=== PATIENT | female | born 1960 | race Caucasian/White ===

== ENCOUNTER 2018-10-07 13:42 | Inpatient (IN) | payer OTHER ==
[~2018-10-07] VITALS: Ht 167.6 cm; Wt 70.8 kg
[2018-10-07 13:45] VITALS: BP 97/67
[2018-10-07] MEDS ORDERED: NOHOMEMEDICATIONS (14:07)
[2018-10-07 14:18] LABS: ABSOLUTE NEUTROPHILS 7.9 thou/uL (1.4-8.2); BASOPHILS 0.1 % (0.0-2.0); EOSINOPHILS 0.1 % (0.0-3.0); HEMATOCRIT 46.1 % (37.0-47.0); HEMOGLOBIN 15.9 gm/dL (12.0-15.0); LYMPHOCYTES 5.8 % (24.0-44.0); MCH 30.3 pg (26.0-34.0); MCHC 34.5 g/dL (28.0-37.0); MCV 87.8 fL (80.0-100.0); MONOCYTES 7.3 % (1.0-8.0); PLATELET COUNT 276 thou/uL (150-400); POLYS 86.7 % (36.0-66.0); RBC 5.25 mil/uL (4.20-5.00); RDW 13.2 % (10.5-14.5); WBC 9.1 thou/uL (4.0-11.0)
[2018-10-07 14:25] LABS: CALCIUM 8.9 mg/dL (8.5-10.1); CREATININE 0.9 mg/dL (0.6-1.0); POTASSIUM 3.8 mmol/L (3.5-5.1)
[2018-10-07 14:31] LABS: ALBUMIN 3.5 g/dL (3.4-5.0); TOTAL BILIRUBIN 0.5 mg/dL (<0.1-1.0); TOTAL PROTEIN 7.5 g/dL (6.4-8.2)
[2018-10-07 16:10] VITALS: BP 106/54
[2018-10-07 16:49] VITALS: BP 106/54
[2018-10-07 17:55] VITALS: BP 107/62
[2018-10-07 19:25] VITALS: BP 113/60
--- NOTE | 2018-10-07 19:36 | NUR ---
adm PT CAME IN FROM ER. ADM ORDERS CARRIED OUT. PT ORIENTED TO ROOM, PRN PAIN AND NAUSEA MEDS GIVEN.
[2018-10-08 03:32] VITALS: BP 87/46
[2018-10-08 05:56] LABS: HEMATOCRIT 38.1 % (37.0-47.0); MCH 30.1 pg (26.0-34.0); MCHC 34.3 g/dL (28.0-37.0); MCV 87.9 fL (80.0-100.0); RBC 4.33 mil/uL (4.20-5.00); RDW 13.2 % (10.5-14.5); WBC 5.2 thou/uL (4.0-11.0)
[2018-10-08 05:59] LABS: CALCIUM 8.3 mg/dL (8.5-10.1); CREATININE 0.8 mg/dL (0.6-1.0); POTASSIUM 3.5 mmol/L (3.5-5.1)
[2018-10-08 06:06] LABS: HEMOGLOBIN 13.1 gm/dL (12.0-15.0)
[2018-10-08 07:25] VITALS: BP 110/59
--- NOTE | 2018-10-08 09:57 | NUR ---
PROGRESS PT ADMITTED WITH SBO, BS ABSENT, ABDOMEN DISTENDED PAINFUL AND SLIGHTLY FIRM GUARDING NOTED WITH ASSESSMENT. NG ATTEMPTED TO RIGHT NARE UNABLE TO INSERT PT PANICKED AND HAD TO BE GIVEN A BREAK, INSERTED INTO LEFT NARE WITH NO DIFFICULTY IMMEDIATE RETURN OF 300 CC'S OF DARK GREEN/BLACK DRAINAGE PT ALSO VOMITED A LARGE AMOUNT DURING INSERTION, DRAINAGE NOW HAS SOME ALICE BLOOD IN IT LEFT NARE WAS BLEEDING FROM NG ATTEMPT BUT NOT NOTED AT THIS TIME. APPROX. 0030 IMMEDIATELY AFTER NG INSERTION COMPLETED PT FAINTED AND BECAME UNRESPONSIVE HAD A PULSE BUT DID NOT APPEAR TO BE BREATHING CODE CALL PT WOKE WITHIN A MINUTE RAT TEAM MANAGING BROKER IN, PHYSICIAN NOTIFIED PT PLACED ON TELEMETRY. VSS RESTING AT THIS TIME.
--- NOTE | 2018-10-08 10:33 | NUR ---
PT ADMITTED RELATED TO SBO, UPPER GI BLEED. CM REVIEWED CHART AND SPOKE WITH CARE TEAM. CM MET WITH PT AND MELISSA AT BEDSIDE THIS DAY. PT IS A&O X4. CM ROLE INTRODUCED. PT INDICATED SHE AND SO LIVE IN A MOBILE HOME WITH 4 STEPS TO ENTER AND NO STEPS INSIDE. 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 PT INDICATED NO DME OR HH HX. PT INDICATED SHE PLANS TO RETURN HOME ONCE MEDICALLY STABLE. CM TO FOLLOW INDICATED WITH DC PLANNING.
[2018-10-08 11:40] VITALS: BP 103/54
[2018-10-08 19:34] VITALS: BP 112/69
[2018-10-09 03:21] VITALS: BP 104/57
[2018-10-09 17:23] VITALS: BP 104/58
--- NOTE | 2018-10-09 17:29 | NUR ---
TOWARDS POC PT A/O X4, VSS, AFEBRILE. PAIN MANAGED BY MEDS. PT HAD NG TUBE AND ACCIDENTALLY PULLED OUT. NURSE PUT ANOTHER NG TUBE AT LEFT NARE PER SURGEON. ONETIME ATIVAN GIVEN PRIOR INSERTION. PT NG TUBE WITH WHITISH MINIMAL OUTPUT ON LOW INT. SUCTIONING. HOSPITALIST IS OK TO LEAVE THE NG TUBE OUT IF ITS ACCIDENTALLY COMES OUT AGAIN. WILL CONTINUE TO MONITOR.
[2018-10-09 19:23] VITALS: BP 102/57
[2018-10-10 04:41] VITALS: BP 105/57
--- NOTE | 2018-10-10 05:32 | NUR ---
PT SLEPT WELL FOR MOST OF THE NIGHT. READJUSTED NG TUBE TO REDUCE PULLING. REMAINED AT 35CM. 100ML OUT OF NG OVER NIGHT. ADMINISTERED 3 DOSES OF PAIN MEDICATION OVERNIGHT. NO NAUSEA.
--- NOTE | 2018-10-10 11:14 | NUR ---
LOURDES MALONE REVEIEWED BY . FLEET ENEMAX1. TOLERATED VERY POORLY. PT STARTED SCREAMING AND PAIN AND REQUESTED THE ENEMA TO BE STOPPED. 3/4 BOTTLE COMPLETED. MADE SMALL BOWEL MOVEMENT. REPORTS PRESSURE. NGT STILL SUCTIONING TO INTERMITTENT SUCTION. CALLED AND OBTAINED AN ORDER FOR ONE TIME FENTANYL. PT NOW RESTING IN BED. BEDSIDE COMMODE NEXT TO PT'S BED AND AT BEDSIDE. WILL CONT TO MONITOR FOR ANY CHANGES.
[2018-10-10 14:02] VITALS: BP 101/65
--- NOTE | 2018-10-10 14:35 | NUR ---
Care team indicated that they are currently treating with conservative management but may necessitate operative intervention if no better in a few days. It isn't antipated that pt will discharge over the weekend. Cm to follow as indicated with dc planning.
--- NOTE | 2018-10-10 18:41 | NUR ---
ASSUMED CARE AT 0700. AXOX4. SBO. NPO, NGT INTERM SUCTION. ENEMA X 1 PER ATTENDING, TOLERATED POORLY. LATER EVALUATED BY AT BEDSIDE. PAIN MED CHANED TO DILUADID FROM FENTANYL. PERSISTENT NAUSEA CONTOLLED WITH ZOFRAN. NO S/S ACUTE DISTRESS NOTED OR REPORTED AT THIS TIME
[2018-10-10 19:07] VITALS: BP 86/46
[2018-10-10 21:26] VITALS: BP 111/61
[2018-10-11] VITALS (7 sets, daily range): BP systolic 84–144; BP diastolic 47–74
--- NOTE | 2018-10-11 04:00 | NUR ---
PT C/O EPIGASTRIC CHEST PAIN RADIATING TO LEFT SHOULDER. CORPORATE WELLNESS COORDINATOR CALLED. SEE CORPORATE WELLNESS COORDINATOR FLOWSHEET.
[2018-10-11 04:05] LABS: CALCIUM 8.1 mg/dL (8.5-10.1); CREATININE 0.7 mg/dL (0.6-1.0)
[2018-10-11 06:09] LABS: CHOLESTEROL 180 mg/dL (<200); HDL CHOLESTEROL 33 mg/dL (>40); LDL CHOLESTEROL 123 mg/dL (<100); TC:HDL 5.5 Ratio (Not establshd); TRIGLYCERIDE 122 mg/dL (<150); VLDL 24 mg/dL (<40)
--- NOTE | 2018-10-11 06:10 | NUR ---
ASSUMED PT CARE 1900. PT ALERT AND ORIENTED X4. VSS, LOW BLOOD PRESSURE 86/46 PT IS NONSYMPTOMATIC, HOSPITALITY AMBASSADOR NOTFIED, CONTINUING TO MONITOR. NG TUBE IN PLACE AND FLUSHED, SUCTIONING WELL. PT REPORTS NAUSEA, TREATED WITH MEDICATION, SEE EMAR. PT REPORTS SEVERE PAIN, PARTIALLY RELEIVED BY MEDICATION, SEE EMAR. PT REPORTED CHEST PAIN, NUMBNESS AND TINGLING DOWN LEFT ARM INTO FINGERS. RAT TEAM CALLED, STAT EKG AND LABS OBTAINED. PROTONIX GIVEN EARLY. SUBLINGUAL NITRO GIVEN X1, PT REPORTED ALMOST IMMEDIATE RELEIF. HOSPITALITY AMBASSADOR NOTIFIED, ORDERS GIVEN FOR LIPID PROFILE AND CARDIO CONDULT. VS IMMEDIATELY FOLLOWING REPORTED CHEST PAIN STABLE. NO VARIATION IN TELE. PT REMAINES ON RA. NO COMPLAINTS OF SHORTNESS OF BREATH, O2 SATS 99%. SUCTION TUBING ON NG TUBE REPLACED, TUBING FLUSHED AGAIN. PT TRANSFERED TO , REPORT CALLED AND GIVEN TO NURSE.
[2018-10-11 06:12] LABS: SERUM ASSESSMENT Clear
--- NOTE | 2018-10-11 06:34 | NUR ---
PATIENT CAME TO FLOOR PATIENT ON TELE. PAIN TREATED K(+) INFUSING. PATIENT IS RESTING COMFORTABELY IN BED. BED ALARM ON. WCM. PATIENT IS PROGRESSING TO GOALS.
--- NOTE | 2018-10-11 10:53 | EKG ---
[address] [place] [employer] [place] [address] ELECTROCARDIOGRAM REPORT Name: CASSANDRA CALERO Room #: 359-P ADM IN M.R.#: [id number] Admission: 10/07/18 Attend Phys: Madi Santiago Discharge: Date of : 56 Report #: [id number] THIS REPORT FOR: //name// [facility] Test Date: 2018-10-11 Test Time: 08:39:41 Pat Name: CASSANDRA CALERO Department: Room: 359 Gender: F Inspector Repairer [place]: blake : 1960 Requested By: Sandra Echavarria Order Number: [id number] MD: Regis Gabriel Measurements Intervals [place] Rate: 63 P: 39 NC: 165 QRS: 59 QRSD: 92 T: 25 QT: 418 QTc: 428 Interpretive Statements Sinus rhythm Abnormal R-wave progression, early transition No previous ECG available for comparison Electronically Signed On 10-11-2018 10:53:32 HAND CUTTER by Regis Gabriel [email or web address] <ELECTRONICALLY SIGNED> By: Regis Gabriel MD, [facility] 10/11/18 1053 [id number] Regis Gabriel MD, FACC /EPI
--- NOTE | 2018-10-11 13:55 | 2DMMODE ---
[facility] [address] [place] [address] 2 D/M-MODE ECHOCARDIOGRAM Name: GALILEACASSANDRA Room #: 359-P ADM IN M.R.#: [id number] Admission: 10/07/18 Attend Phys: Madi Glynn Discharge: Date of : 56 Date of Service: 10/11/18 1355 Report #: [id number] THIS REPORT FOR: //name// APPROVED REPORT Study performed: 10/11/2018 12:00:46 EXAM: Comprehensive 2D, Doppler, and color-flow Echocardiogram Patient Location: Bedside Room #: 359 Status: on-call BSA: 1.80 HR: 66 bpm BP: 87/47 mmHg Rhythm: NSR Other Information Study Quality: Adequate Risk Factors: Cardiac Risk Factors: Hyperlipidemia Indications Chest Pain 2D Dimensions IVSd: 10.63 (7-11mm) LVOT Diam: 20.00 (18-24mm) LVDd: 35.30 mm PWd: 10.86 (7-11mm) Ascending Ao: 29.12 (22-36mm) LVDs: 26.30 (25-40mm) Aortic Root: 28.40 mm LV Single Plane 4CH: 73.49 % LV Single Plane 2CH: 67.38 % Biplane EF: 70.2 % Volumes Left Atrial Volume (Systole) Single Plane 4CH: 21.05 mL Single Plane 2CH: 38.99 mL LA ESV Index: 17.00 mL/m2 Aortic Valve AoV Peak Thiago.: 1.59 m/s AO Peak Gr.: 10.14 mmHg Mitral Valve [facility] [address] [place] [address] 2 D/M-MODE ECHOCARDIOGRAM Name: CASSANDRA CALERO Room #: 359-P [facility] IN .R.#: [id number] Admission: 10/07/18 Attend Phys: Madi Glynn Discharge: Date of : 56 Date of Service: 10/11/18 1355 Report #: [id number] E/A Ratio: 1.2 MV Decel. Time: 265.29 ms MV E Max Thiago.: 0.73 m/s MV A Thiago.: 0.62 m/s MV PHT: 76.93 ms IVRT: 64.59 ms TDI E/Lateral E': 6.08 E/Medial E': 7.30 Medial E' Thiago.: 0.10 m/s Lateral E' Thiago.: 0.12 m/s Pulmonary Valve PV Peak Thiago.: 1.00 m/s PV Peak Gr.: 4.03 mmHg Pulmonary Vein P Vein S: 0.65 m/s P Vein A: 0.34 m/s P Vein D: 0.51 m/s P Vein A Dur.: 114.2 msec P Vein S/D Ratio: 1.27 Tricuspid Valve TR Peak Thiago.: 2.34 m/s RAP Estimate: 7.00 mmHg TR Peak Gr.: 21.93 mmHg PA Pressure: 29.00 mmHg Left Ventricle The left ventricle is normal size. There is normal LV segmental wall motion. There is normal left ventricular wall thickness. Left ventricular systolic function is normal. The left ventricular ejection fraction is within the normal range. LVEF is 65-70%. The left ventricular diastolic function is normal. Right Ventricle The right ventricle is normal size. The right ventricular systolic function is normal. Atria The left atrium size is normal. The right atrium size is normal. Aortic Valve The aortic valve is normal in structure. No aortic regurgitation is present. There is no aortic valvular stenosis. Mitral Valve The mitral valve is normal in structure. There is no mitral valve [place] [id number] 2 D/M-MODE ECHOCARDIOGRAM Name: CASSANDRA CALERO Room #: 359-P ADM IN M.R.#: [id number] Admission: 10/07/18 Attend Phys: Madi Glynn Discharge: Date of : 56 Date of Service: 10/11/18 1355 Report #: [id number] regurgitation noted. No evidence of mitral valve stenosis. Tricuspid Valve The tricuspid valve is normal in structure. Trace tricuspid regurgitation. Pulmonary artery pressure is 25 mmHg. Pulmonic Valve The pulmonary valve is normal in structure. There is no pulmonic valvular regurgitation. Great Vessels The aortic root is normal in size. IVC is normal in size and collapses >50% with inspiration. Pericardium There is no pericardial effusion. <Conclusion> Left ventricular systolic function is normal. There is normal LV segmental wall motion. LVEF is 65-70%. The left ventricular diastolic function is normal. The aortic valve is normal in structure. No aortic regurgitation or stenosis. The mitral valve is normal in structure. No mitral valve regurgitation. Trace tricuspid regurgitation. Pulmonary artery pressure is 25 mmHg. There is no pericardial effusion. <ELECTRONICALLY SIGNED> By: Regis Gabriel MD, FACC 10/11/18 1355 1355 1355 Regis Gabriel MD, FACC /INF
--- NOTE | 2018-10-11 18:44 | NUR ---
CONSULTED TO PLACE A MIDLINE FOR A PATIENT NEEDING IV ACCESS. DISCUSSED MIDLINE PLACEMENT WITH THE PATIENT INCLUDING BENIFITS AND RISK FOR DVT AND INFECTION. SHE VERBALIZED UNDERSTANDING. A VERBAL CONSENT OBTAINED. THE PATIENTS LUE BASILIC WAS WIDLEY PATENT. A #4F POWER MIDLINE WAS PLACED PER HOSPITAL POLICY. LINE WAS TRIMMED TO 15CM AND ADVANCED WITHOUT DIFFICULTY. LINE SECURED AND RELEASED FOR USE
--- NOTE | 2018-10-11 20:23 | NUR ---
ASSUMED CARE THIS AM, SHIFT ASSESSMENT DONE. BP LOW THIS AM, PROVIDER AWARE. REPORTED PAIN, PRN PAIN MEDS GIVEN. REMAINS ON LOW INTERMITTENT MOBIVAC SUCTION. PATIENT AND FAMILY WAS URGING TO SEE THE SURGEON AND HOSPITALIST THEY WERE INSISTING ON SURGERY. DR MENDOZA WAS CONTACTED AND ORDERS RECEIVED FOR Q6H TORADOL PRN. 1ST DOSE WAS GIVEN AT 1500 AND 3 MINUTES AFTER THE FIRST DOSE, PATIENT STARTED REPORTING SEVERE DIFFICULTY BREATHING. SATURATION WAS DOWN TO 74%. PATIENT WAS STARTED ON A NON-REBREATHER MASK, PRN BREATHING TREATMENT WITH DUONEB WAS GIVEN. IN THE PROCESS PATIENT PULLED THE NG TUBE OUT AT 1530 PATIENT STARTED BREATHING BETTER. DR CHIANG WAS AWARE. ORDER RECEIVED FOR CHEST XRAY, WHICH SHOWED ASPIRATON. WAS STARTED ON IV ZOSYN, BUT PATIENT WAS ALLERGIC TO IT, SWITCHED TO LEVAQUIN. PATIENT HOWEVER REFUSED TO PUT THE NG TUBE BACK IN. DR MENDOZA AWARE, ORDERS RECEIVED FOR 1 MG ATIVAN PRN ONE TIME DOSE IF PATIENT WANTS TO PUT THE NG TUBE BACK. NIGHT NURSE AWARE. POTTASIUM WAS CRTICALLY LOW WELL. ON ELECTROLYTE PROTOCOL, REPLACEMENT IN PLACE. ORDERS RECEIVED FOR MIDLINE, IV NURSE INFORMED AND HAS A RIGHT UPPER ARM MIDLINE NOW. PAIN CONTROLLED BY IV DILAUDID AND NAUSEA MANAGED BY ZOFRAN. WILL CONTINUE TO ASSESS AND ASSIST WITH ADLs NEEDED.
[2018-10-12 04:16] VITALS: BP 122/73
--- NOTE | 2018-10-12 06:39 | NUR ---
Pt. very anxious at beginning of shift. Medicated for pain with some relief. Agreed to have NG placed. Lorazepam given prior. Tolerated procedure well and stated it didnt hurt at all. Zofran given for nausea with good relief. Encouraged to ambulate and she did ambulate around hallway x2. She is less anxious and slept fair during the night with her friend at bedside. Hypoactive bowel sounds , reported passing gas yesterday , no bm this shift. NG had 50 ml brownish colored dge. Left NG to LIS. Kept NPO .SCD's in place. Will continue to monitor.
[2018-10-12 07:18] VITALS: BP 123/70
[2018-10-12 11:23] VITALS: BP 107/66
--- NOTE | 2018-10-12 11:57 | EKG ---
[address] [place] [address] ELECTROCARDIOGRAM REPORT Name: CASSANDRA CALERO Room #: 359- ADM IN M.R.#: [id number] Admission: 10/07/18 Attend Phys: Madi Santiago Discharge: Date of : 56 Report #: [id number] THIS REPORT FOR: //name// [facility] Test Date: 2018-10-11 Test Time: 03:37:36 Pat Name: CASSANDRA CALERO Department: Room: 359 Gender: F Ribbon Sweatband Operator: daniele : 1960 Requested By: Sandra Echavarria Order Number: [id number] MD: Regis Gabriel Measurements Intervals [place] Rate: 74 P: 52 MN: 168 QRS: 61 QRSD: 91 T: 29 QT: 402 QTc: 446 Interpretive Statements Sinus rhythm Nonspecific ST segment abnormality No previous ECG available for comparison Electronically Signed On 10-12-2018 11:57:29 LIBRARY PARAPROFESSIONAL by Regis Gabriel [email or web address] <ELECTRONICALLY SIGNED> By: Regis Gabriel MD, [facility] 10/12/18 1157 0337 0337 Regis Gabriel MD, FACC /EPI
[2018-10-12 15:09] VITALS: BP 112/55
--- NOTE | 2018-10-12 17:21 | NUR ---
ASSUMED PATIENT CARE AT 0700. A/O X4. ABD DISTENDED. PATIENT WALKED IN [address] THREE TIMES. PAIN MEDS GIVEN Q3H. NO N/V. NG TO LIS HAD 15OML OUT. WILL HAVE ABD SURGERY TOMORROW NOON TIME. WILL KEEP MONITOR.
[2018-10-12 19:30] VITALS: BP 108/49
[2018-10-13] VITALS (9 sets, daily range): BP systolic 96–119; BP diastolic 61–74
--- NOTE | 2018-10-13 04:09 | NUR ---
PT MAKING SLOW PROGRESS TOWARDS GOALS. X3 DOSES OF DILAUDID GIVEN OVERNIGHT. X1 DOSE OF ZOFRAN GIVEN. ZOFRAN DID RELIEVE THE NAUSEA. ABD PAIN GENERALLY RATED 8/10 WHICH SHE USUALLY DECREASES TO 5-6/10 AFTER DILAUDID DOSES.
[2018-10-13 05:38] LABS: HEMOGLOBIN 9.6 gm/dL (12.0-15.0); MCH 30.5 pg (26.0-34.0); MCHC 34.3 g/dL (28.0-37.0); MCV 88.8 fL (80.0-100.0); RBC 3.15 mil/uL (4.20-5.00); WBC 4.2 thou/uL (4.0-11.0)
[2018-10-13 05:51] LABS: CREATININE 0.7 mg/dL (0.6-1.0); POTASSIUM 3.1 mmol/L (3.5-5.1)
--- NOTE | 2018-10-13 15:08 | NUR ---
SW reviewed chart and spoke with nursing and attending physician. Pt was transferred to 3 from 4W. Pt to have exporatory lap today due to SBO. Plan is for pt to return home with her s/o when medically stable. MELISSA is following to assist as needed with discharge planning.
--- NOTE | 2018-10-13 18:18 | NUR ---
ASSUMED PATIENT CARE AT 0700. A/ O X4. PLEASANT. WENT TO OR HAD SMALL BOWEL RESECTION. ABD INCISION WITH PROVENA WOUND VAC. ABD DISTENDED. PAIN MEDS GIVEN Q3H. AFEBRLIE. VSS. BACK TO UNIT AT 1600. PATIENT DENIES N/V. WILL KEEP MONITOR.
[2018-10-14 03:55] VITALS: BP 106/61
[2018-10-14 05:25] LABS: ALBUMIN 2.2 g/dL (3.4-5.0); CALCIUM 8.4 mg/dL (8.5-10.1); CREATININE 0.7 mg/dL (0.6-1.0); PHOSPHORUS 3.6 mg/dL (2.5-4.9); POTASSIUM 3.8 mmol/L (3.5-5.1)
[2018-10-14 05:44] LABS: HEMATOCRIT 32.8 % (37.0-47.0); HEMOGLOBIN 11.3 gm/dL (12.0-15.0); MCH 30.3 pg (26.0-34.0); MCHC 34.4 g/dL (28.0-37.0); MCV 88.1 fL (80.0-100.0); RBC 3.72 mil/uL (4.20-5.00); RDW 12.9 % (10.5-14.5)
[2018-10-14 07:25] VITALS: BP 122/71
--- NOTE | 2018-10-14 07:42 | NUR ---
SLEPT PART OF SHIFT. ASSISTED TO REPOSITION NEEDED. COMPLAINTS OF POST OP PAIN AND NAUSEA. STATES IS BETTER THIS AM. SLEEPING PAST MEDICATIONS GIVEN. WORKING ON GOALS AND PLAN OF CARE FOR NOC. PROGRESSING SLOWLY TOWARDS DISCHARGE GOALS. ENCOURGE TO TAKE FLUIDS SLOWLY. BURPED X1 LAST NOC. BOWEL SOUNDS HYPOACTIVE. CONTINUE TO ASSES.
--- NOTE | 2018-10-14 13:42 | NUR ---
SW reviewed chart and spoke with nursing and attending physician. Pt is s/p exploratory lap. Pt's diet is slowly being advanced. SW met with pt at bedside to discuss discharge plan. Pt states she would be agreeable to either post-acute placement or HH if needed. Awaiting therapy evals. SW is following to assist as needed with discharge planning.
[2018-10-14 17:05] VITALS: BP 110/75
--- NOTE | 2018-10-14 18:08 | NUR ---
ASSUMED PATIENT CARE AT 0700. A/O X4. ABD INCISION WITH PRIVANA WOUND VAC. PATIENT OUT OF BED WALKING. PIAN MED GIVEN Q3H. GETTING BETTER WITH NAUSEA. NO VOMIT. SLOWLY TOWARDS POC GOALS.
[2018-10-14 19:20] VITALS: BP 114/61
[2018-10-15 04:05] VITALS: BP 105/65
--- NOTE | 2018-10-15 04:23 | NUR ---
PATIENT IS SLOWLY PROGRESSING IN HER CARE PLAN. VITAL SIGNS STABLE WITH PATIENT HAVING MANY COMPLAINTS OF PAIN AND NAUSEA DURING SHIFT REQUIRING INTERVENTION. PATIENT REMAINS ON CLEAR LIQUID DIET. FULLY ORIENTED PATIENT IS ABLE TO CALL APPROPRIATELY AND PARTICIPATE IN CARE PLAN. PREVENA DRESSING ON MIDLINE ABDOMEN REMAINS C/D/I. PATIENT HAS BEEN UP FEW TIMES DUE TO PAIN AND CALLS FOR ASSISTANCE WHEN AMBULATING. CONTINUE PLAN OF CARE.
[2018-10-15 07:35] VITALS: BP 109/66
--- NOTE | 2018-10-15 13:28 | NUR ---
SW reviewed chart and spoke with nursing and attending physician. Pt is slowly progressing towards goals for discharge. 5N is following pt for possible admission to acute rehab. Pt is on clear liquid diet. SW is following to assist as needed with discharge planning.
[2018-10-15 15:36] VITALS: BP 103/67
--- NOTE | 2018-10-15 16:51 | NUR ---
ASSUMED PATIRNT CARE AT 0700. A/O X4. UP AMBULATED. STILL HAS A LOT OF ABD PAIN THAT REQUEST Q3H PAIM MEDS. NO BM ON THIS SHIFT. SLOWLY TOWARDS TO POC GOALS.
[2018-10-15 19:42] VITALS: BP 102/59
--- NOTE | 2018-10-16 03:57 | NUR ---
ASSUMED PT CARE AROUND 1900. A&OX4. C/O ABDOMINAL PAIN. PT CALLS OUT APPROPRIATELY FOR PAIN MEDICATION. PAIN IMPROVES WITH MEDICATION. DENIED ANY NAUSEA THIS SHIFT. PT SLEPT MOST OF THE NIGHT. RESP EVEN AND UNLABORED. PT IS ABLE TO REPOSITION HERSELF IN BED. IVF INFUSING ORDERED. CHAVES TO DD WITH GOOD URINE OUTPUT. STILL NO BOWEL MOVEMENT YET THIS SHIFT. PROGRESSING SLOWLY TOWARD POC GOALS. WILL CONTINUE TO MONITOR FURTHER.
[2018-10-16 04:24] VITALS: BP 99/57
[2018-10-16 05:29] LABS: ALBUMIN 1.9 g/dL (3.4-5.0); CALCIUM 8.2 mg/dL (8.5-10.1); CREATININE 0.7 mg/dL (0.6-1.0); MAGNESIUM 1.8 mg/dL (1.8-2.4); TOTAL BILIRUBIN 0.7 mg/dL (<0.1-1.0); TOTAL PROTEIN 5.6 g/dL (6.4-8.2)
[2018-10-16 07:31] VITALS: BP 101/62
--- NOTE | 2018-10-16 11:07 | PATH ---
[facility] [place] [address] PATHOLOGY RPT PROCEDURE Name: CASSANDRA CALERO Room #: 359-P ADM IN M.R.#: [id number] Admission: 10/07/18 Date of : 56 Discharge: Report #: [id number] Path Case #: [id number] [facility] Accession Number: [id number] . 01 Material submitted: . PART A: ILEOCECAL SMALL BOWEL PART B: PROXIMAL ILEUM, SUTURE FARLEY PROXIMAL END . 01 Clinical history: . Recurrent SBO . 02 Diagnosis: A. Small bowel, ileocecal small bowel, resection: - Marked congestion and foci of serositis associated with adhesions, history of small bowel obstruction. - Proximal and distal margins showing viable mucosa. . B. Small bowel, proximal ileum suture farley proximal, resection: - Marked congestion and foci of serositis associated with adhesions, history of small bowel obstruction. - Proximal and distal margins showing viable mucosa. . (RHONDAV:nelli; 10/15/2018) MBFercho/10/15/2018 . 02 Electronically signed: . Karissa Quinteros MD, Pathologist NPI- [id number] . 01 Gross description: . A. The specimen is received in formalin, labeled "Cassandra Calero, ileocecal small bowel" and consists of a serpiginous segment of small bowel (47.0 cm in length and ranging from 1.1 cm to 2.8 cm in diameter) with contiguous cecum (8.0 cm in length and 4.9 cm in diameter) and pericolic fat lining the entire specimen measuring up to 5.2 cm. Both margins are closed with leeanne. The small bowel serosa is beal with fibrous adhesions and hemorrhage. The cecal serosa is rodriguez-beal with adhesions. The appendix is absent. Opening reveals a pink-beal and slightly edematous small bowel mucosa with no masses or lesions. The cecum mucosa is pink-beal without masses or lesions. Creative Producer sections are submitted as follows: . A1: Proximal margin A2: Distal margin A3-A4: Creative Producer small bowel mucosa A5-A6: Creative Producer cecum mucosa . [address] [address] PATHOLOGY RPT PROCEDURE Name: CASSANDRA CALERO Room #: 359-P ADM IN M.R.#: [id number] Admission: 10/07/18 Date of : 56 Discharge: Report #: [id number] Path Case #: [id number] B. The specimen is received in formalin, labeled "Cassandra Calero, proximal ileum" and consists of an oriented segment of small bowel measuring 23.0 cm in length and ranging from 1.7-2.5 cm in diameter with pericolic fat lining the entire specimen measuring up to 4.4 cm. A suture at one end is designated proximal and both margins are closed with leeanne. The serosa is beal-brown with hemorrhagic adhesions covering approximately 30% of the specimen. Opening reveals the lumen is filled with thick green fecal material. The mucosa is pink-beal, slightly edematous without any masses or lesions. Creative Producer sections are submitted as follows: . B1: Proximal margin B2: Distal margin B3-B4 product sales representative sections tissue areas of adhesions (SDY; 10/14/2018) SYU/SYU . 02 Pathologist provided ICD-10: K56.50, K65.8, K63.89 . 02 CPT . 232273, 738170 Specimen Comment: A courtesy copy of this report has been sent to Specimen Comment: [phone], . Specimen Comment: Report sent to / DR CHIANG Specimen Comment: A duplicate report has been generated due to demographic updates. Performed at: [address], [place], [place] [id number] MD Kennedy Mooney MD Phone: [phone] Performed at: [address] [id number] MD Karissa Quinteros MD Phone: [phone]
--- NOTE | 2018-10-16 15:05 | NUR ---
SW reviewed chart and spoke with nursing and attending physician. Pt is progressing towards goals for discharge. Pt's diet is slowly being advanced. 5N consult completed. SW discussed case with 5N rehabilitation teacher who will submit for insurance authorization. Discharge is anticipated for tomorrow. MELISSA is following to assist as needed with discharge planning.
[2018-10-16 15:08] VITALS: BP 112/71
[2018-10-16 15:43] VITALS: BP 166/79
--- NOTE | 2018-10-16 18:14 | NUR ---
PT ALERT AND ORIENTED TIMES FOUR. VSS, 98%RA, SR ON TELE, IVF INFUSING PER ORDER. PREVENA WOUND VAC TO ABD IN PLACE. PT C/O PAIN PRN PAIN MEDICATIONS GIVEN SEVERAL TIMES THIS SHIFT WITH SOME RELEIF. PT TOLERATES CLEAR LIQUID DIET. PT WORKED WELL WITH PHYSICAL THEARPY WALKING AROUND THE UNIT. FAMILY AT BEDSIDE. PT SLOWLY PROGRESSING TOWRADS POC GOALS.
[2018-10-16 19:22] VITALS: BP 110/64
[2018-10-17 03:34] VITALS: BP 102/64
--- NOTE | 2018-10-17 06:17 | NUR ---
Medicated for pain and nausea with relief. She slept well during the night. Ambulated in hallway yesterday. Tolerating clear liquid diet. PPN infusing. Reported passing gas.Female external cath at HS with large amount of urine output.Abdominal incision to prevena wound vac. Making progress towards care plan goals.
[2018-10-17 08:21] VITALS: BP 118/71
--- NOTE | 2018-10-17 15:05 | NUR ---
SW reviewed chart and spoke with nursing and attending physician. Pt is progressing towards goals for discharge. SW discussed case with 5[facility] transitional care liaison. Info submitted to insurance for authorization. SW met with pt at bedside to discuss discharge plan. Pt is agreeable with going to [facility] if insurance approves. SW is following to assist as needed with discharge planning.
--- NOTE | 2018-10-17 15:12 | NUR ---
STITCHDOWN TOE FORMER SPOKE WITH DAVIS SEN. PATIENT HAS BEEN DENIED AUTHORIZATION FOR ACUTE REHAB. REASON STATED IS "CARE PATIENT NEEDS CAN BE DONE THROUGH OUT PATIENT." PEER TO PEER CAN BE SCHEDULED BY CALLING . IT WAS SUGGESTED THAT CALL BE MADE TODAY TO SCHEDULE APPOINTMENT IF PHYSICAIN WOULD LIKE TO CONTINUE TO PURSUE ACUTE REHAB PLACEMENT.
--- NOTE | 2018-10-17 16:14 | NUR ---
Assumed care of patient at 0700. Vitals have been stable. Patient alert and oriented x4. Complaints of abdominal pain. Partially controlled with PRN meds. Patient reports feeling gas pains and has passed flatus, but still no BM. Highly encouraging patient to get up and move around throughout day. Offered to get patient up and sit in chair this morning, patient declines at the time. Educated patient on benefits of ambulating and to help promote bowel function. Patient did get up and work with OT this morning and did sit in chair for awhile. Walked hallways with nursing and then back to bed. Has declined further ambulation the rest of the afternoon, but will continue to encourage ambulation and walking hallways. PPN and IVF infusing per orders. Adequate urine output. Fall precautions in place. Prevena wound vac intact to midline abdomen. Not yet progressing towards POC. Will continue to monitor.
[2018-10-17 16:22] VITALS: BP 109/66
[2018-10-17 19:20] VITALS: BP 100/57
[2018-10-18 03:32] VITALS: BP 111/72
[2018-10-18 07:35] VITALS: BP 110/67
--- NOTE | 2018-10-18 07:51 | NUR ---
SLEPT PART OF SHIFT. CALLS EVERY 3 HOURS FOR PAIN MEDICATION. REQUEST NAUSEA MED EVERY 6 HOURS. REMAINS ON CLEAR LIQUIDS AND TOLERATING. ASSIST TO REPOSITION PRN. ASSISTED UP TO COMODE AND PASSING GAS. IS BURPING ALSO. WORKING ON GOALS AND PLAN OF CARE FOR NOC. PROGRESSING TOWARDS DISCHARGE GOALS SLOWLY. CONTINUE TO ASSES.
[2018-10-18 16:05] VITALS: BP 106/62
--- NOTE | 2018-10-18 16:34 | NUR ---
Assumed care of patient at 0700. Vitals have been stable. Complaints of abdominal pain; continues to call for Dilaudid q 3 hours - partially controls pain. Patient with intermittent nausea, PRN Compazine. Patient continues to need a lot of encouragement to ambulate and move throughout shift, but patient has done better today with moving. Has been getting up independently from bed to BSC to void, instead of using external female catheter. Has walked hallways with nursing and sat up in chair some this afternoon. Is passing a lot of flatus today. Advanced to full liquid diet. Patient tolerated lunch, but only ate a small amount and did feel somewhat nauseated. Encouraging to take slow. To remain on full liquids for dinner tonight and will advance as able. Significant other at bedside and some visitors throughout the day. Slowly progressing towards POC. Will continue to monitor.
[2018-10-18 19:19] VITALS: BP 110/65
[2018-10-19 03:29] VITALS: BP 116/66
--- NOTE | 2018-10-19 04:45 | NUR ---
SLEPT PART OF SHIFT. TAKES IV PAIN MEDICATION EVERY 3 HOURS FOR COMFORT AND COMPAZINE EVERY 6 HOURS FOR NAUSEA. UP TO BSC WITH STEADY GAIT. MAINTAIN SAFE ENVIRONMENT. WORKING ON GOALS AND PLAN OF CARE FOR NOC. PROGRESSING TOWARDS DISCHARGE GOALS SLOWLY. STATES JUST HURTS ALOT WHEN MOVING. ENCOURAGED TO INCREASE ACTIVITY. CONTINUE TO ASSES.
[2018-10-19 07:23] VITALS: BP 94/54
[2018-10-19 15:15] VITALS: BP 107/67
[2018-10-19 20:00] VITALS: BP 105/59
--- NOTE | 2018-10-19 20:00 | NUR ---
Assumed care of patient at 0700. Vitals have been stable. Complaints of abdominal pain, PRN with partial pain control. Intermittent nausea, controlled with PRN Compazine. Patient up to BSC independently and voiding adequately. Continue to encourage ambulation. Walked hallways today. Sitting on edge of bed for meals. Patient still passing gas, but no BM. Advance diet per surgeon note, advanced to fiber restircted diet. Patient still with poor appetite and some nausea while eating, but encouraging to eat as much as she can tolerate without overdoing it. Encouraging drinking fluids. Prevena wound vac intact. Left upper arm midline with pain this morning. IVF stopped and IV team rounded - discontinued midline and peripheral IV placed. Significant other at bedside. Slowly progressing towards POC. Will continue to monitor.
[2018-10-20 00:15] VITALS: BP 108/67
--- NOTE | 2018-10-20 01:30 | NUR ---
2100: PATIENT RESTING IN BED WITH COMPLAINTS OF PAIN. STATES "I JUST DONT FEEL GOOD TONIGHT." HEART RATE 110-130 AT REST AND UP TO 140-150 WITH ACTIVITY. THIS IS FASTER THAN THE PREVIOUS TWO NOCS. PATIENT RESTLESS. IV FENTYNAL GIVEN PER ORDERS. STATES FEELS CONGESTED TONIGHT AND IS COUGHING MORE TONIGHT. 2220: NOTIFIED Laura KELLEY LAB SUPPORT SERVICE TECH OF STATUS CHANGE. ORDERED MUCENEX AND TUSSCLON PEARLS. STATES TO WATCH HEART RATE. 2254: UP TO COMODE AND WAS INCONTINENT OF SMALL AMOUT LIQUID STOOL WHICH IS FIRST SINCE SURGERY. WHILE UP ON COMODE HEART RATE 150, ASSISTED TO CLEAN UP AND GET BACK IN BED. 2330: NOTIENFIED LAB SUPPORT SERVICE TECH OF STATUS. 0015: VSS. TEMP. 100.2, FAN TURNED ON FOR COMFORT. COMPLAINTS OF PAIN BUT STATES DOES NOT WANT FENTYNAL AGAIN IT MAKES HER FEEL FUNNY IT HAS BEFORE. HEART RATE REMAINS 110-130. AGAIN STATES SHE DOESNT FEEL WELL TONIGHT. 0039: NOTIFIED LAB SUPPORT SERVICE TECH OF STATUS. HEART RATE HAS BEEN INCREASING SINCE FENTYNAL STARTED TODAY. WILL TRY ONETIME DOSE OF DILAUDID IVP AND GET BLOOD CULTURES. CONTINUE TO ASSES CLOESLY. 0055: IV DILAUDID GIVEN. PATIENT STATED A GOOD FRIEND TODAY. 0025: PATIENT STATES IS FEELING A LITTLE BETTER NOW. HEART RATE IS NOW 110. CONTINUE TO ASSES CLOESLY. 0049: HEARTRATE NOW 97 AT REST. ENCOURAGED TO CALL IF UP TO BEDSIDE COMODE SO CAN MONITOR CLOESLY.
[2018-10-20 01:45] LABS: ALBUMIN 1.8 g/dL (3.4-5.0); CALCIUM 8.1 mg/dL (8.5-10.1); CREATININE 0.7 mg/dL (0.6-1.0); MAGNESIUM 1.8 mg/dL (1.8-2.4); POTASSIUM 3.6 mmol/L (3.5-5.1); TOTAL BILIRUBIN 1.6 mg/dL (<0.1-1.0); TOTAL PROTEIN 5.9 g/dL (6.4-8.2)
--- NOTE | 2018-10-20 03:42 | NUR ---
SLEEPING AT PRESENT TIME. HEART RATE NOW 88. CONTINUE TO ASSES CLOESLY. WORKING ON GOALS AND PLAN OF CARE FOR NOC. PROGRSSING SLOWLY TOWARDS DISCHARGE GOALS.
[2018-10-20 04:20] VITALS: BP 101/61
[2018-10-20 07:44] VITALS: BP 95/54
[2018-10-20] MEDS ORDERED: HYDROCODON-ACE1 EAC7 PO (09:23)
[2018-10-20] MEDS ORDERED: MIRALAX17 GM PO (09:24)
[2018-10-20] MEDS ORDERED: ACETAMINOPHEN325 M1 PO (09:24)
[2018-10-20] MEDS ORDERED: SIMETHICON CHEW80 M1 PO (09:24)
--- NOTE | 2018-10-20 14:50 | NUR ---
SW reviewed chart and spoke with nursing and attending physician. Pt is progressing towards goals for discharge. Discharge home with HH is anticipated for tomorrow. SW met with pt and s/o at bedside to provide update and discuss discharge plan. Pt and s/o are agreeable with discharge plan. Pt does not have a PCP. SW discussed arranging primary care at [facility] in the [facility]. Pt is agreeable. SW notified Senior Services liaison. Awaiting doctor name and appt time. SW updated intake at [facility]. SW is following to assist as needed with discharge planning.
[2018-10-20 15:13] VITALS: BP 91/56
--- NOTE | 2018-10-20 18:00 | NUR ---
PT HAD PAIN MEDS CHANGED TO ORAL NORCO TODAY WITH GABENTIN SCHEDULED WITH [facility]...ENCOURAGED AMBULATING IN [place]...TOOK COMMODE AWAY AND PATIENT IS MUCH MORE INDEPENDENT...STILL HAS POOR APPETITE...
[2018-10-20 21:37] VITALS: BP 104/63
--- NOTE | 2018-10-20 22:00 | NUR ---
IV on left FA pinkish and a little bit swollen. Refused to have another one started stating she may go home tomorrow.
[2018-10-21] VITALS (7 sets, daily range): BP systolic 87–92; BP diastolic 42–51
--- NOTE | 2018-10-21 04:06 | NUR ---
Ambulated several times in hallway last night. Medicated for pain with some relief. Verbalized feeling hungry and requested for snacks at HS which she tolerated well. No nausea or vomiting. She reported she had bm yesterday. She slept well during the night. Progressing towards care plan goals.
[2018-10-21] MEDS ORDERED: SIMETHICON CHEW80 M1 PO (13:05)
[2018-10-21] MEDS ORDERED: PROTONIX 20 MG20 M1 PO (13:05)
[2018-10-21] MEDS ORDERED: MIRALAX17 GM PO (13:05)
[2018-10-21] MEDS ORDERED: NEURONTIN 300300 M1 PO (13:08)
[2018-10-21] MEDS ORDERED: COLACE100 MG PO (13:08)
[2018-10-21] MEDS ORDERED: ONDANSETRON HCL4 M2 PO (13:16)
--- NOTE | 2018-10-21 14:00 | NUR ---
DISCHARGE NOTE: MELISSA reviewed chart and spoke with nursing and attending physician. Pt is medically stable for discharge home today with services. MELISSA spoke with Kunal in scheduling who states pt can be seen in the [facility] on , 10/23 at 0900. She will be seeing the ACCOUNTING TUTOR. MELISSA informed that pt needs transportation home. MELISSA met with pt and s/o at bedside to discuss discharge plan. Pt and s/o were told that case mgmt would provide w/c van transportation home. MELISSA confirmed pt's home address. MELISSA arranged w/c van transportation home through [employer]. The earliest time would be [phone]. MELISSA updated nursing. MELISSA notified intake at [facility]. Contact info for [facility] placed in discharge summary. No additional MELISSA needs identified at this time, but is available to assist should needs arise.
--- NOTE | 2018-10-21 14:30 | NUR ---
PT HAS GOOD PAIN CONTROL WITH NORCO/GAPENTIN..RXS GIVEN AND DISCHARGE INSTRUCTIONS REVIEWED...
--- NOTE | 2018-10-22 09:01 | O ---
[facility] [place] [address] OPERATIVE REPORT Name: GALILEACASSANDRA Room #: 359-P [facility] IN M.R.#: [id number] Admission: 10/07/18 Attend Phys: Madi Santiago Discharge: 10/21/18 Date of : 56 Report #: [id number] THIS REPORT FOR: //name// CC: [facility]UX physician/PCP Madi Santiago DATE OF SERVICE: 10/13/2018 PREOPERATIVE DIAGNOSIS: Small-bowel obstruction. POSTOPERATIVE DIAGNOSES: 1. Small-bowel obstruction. 2. Marked/dense pelvic adhesions. PROCEDURES PERFORMED: 1. Exploratory laparotomy with extensive lysis of adhesions. 2. Segmental small-bowel resection. 3. Ileocecectomy. 4. Placement of a topical wound VAC (Prevena) device. SURGEON: Manolo Wyatt M.D. DYE AND CHEMICAL COORDINATOR: JACKSON Talavera. ANESTHESIA: General endotracheal anesthesia. ESTIMATED BLOOD LOSS: Minimal (less than 5 mL). COMPLICATIONS: None appreciated. SPECIMENS: 1. Ileocecal resection to Pathology. 2. Segment of small bowel to Pathology. INDICATIONS: The patient is a 57-year-old female who presented with a small-bowel obstruction, having undergone prior hysterectomy and a high degree of suspicion for pelvic adhesions. Unfortunately, the patient did not improve with conservative bowel rest with n.p.o. status and NG tube decompression and upper GI swallow showed inability of Gastrografin did reverse past the distal ileum consistent with a complete obstruction at this location. As such, indication was for exploration today. DESCRIPTION OF PROCEDURE: After explaining the risks, benefits and alternatives of the procedure with the patient in detail and obtaining consent, the patient was brought to the Operating Room and placed supine on the operating room table. After conducting a thorough timeout procedure verifying correct patient and [address] [address] OPERATIVE REPORT Name: CASSANDRA CALERO Room #: 359-P [facility] IN M.R.#: [id number] Admission: 10/07/18 Attend Phys: Madi William Araceli Discharge: 10/21/18 Date of : 56 Report #: [id number] procedure, the patient was given general endotracheal anesthesia. Once adequate anesthesia was obtained, her SCDs were hooked up to the pneumatic compression device and she was given a preoperative dose of antibiotics in line with the SCIP protocol. The patient's abdomen was prepped and draped in standard surgical sterile fashion. A #10 bladed scalpel was used to create a longitudinal midline incision from the supraumbilical location to suprapubic location, carried to the side of the umbilicus. Electrocautery was used to carry this down through skin and subcutaneous tissues to ensure hemostasis until I arrived upon the level of the fascia. This was scored longitudinally and a finger was placed in the abdomen to assist with opening the fascia without injury to the underlying structures. Once the entire fascia had been opened, we encountered numerous interloop adhesions as well as some loops of small bowel plastered to the posterior aspect of the anterior abdominal wall in the pelvis. We now carried out an extensive lysis of adhesions using combination of electrocautery as well as Metzenbaum scissor dissection. The adhesions were so intense and intimately plastered to one another with narrowing at the ileocecal region. It required both a segmental small bowel resection as well as an ileocecectomy. I ultimately mobilized the right colon along the white line of Toldt and was able to elevate the ileocecal region into the wound. A window was made in the mesocolon as well as the mesentery of the distal small bowel using electrocautery. Two separate firings of the KENNY blue load 75 mm stapler was carried out to transect the bowel and the EnSeal X1 device was used to transect the mesentery for hemostasis. Upon evaluating the distal small bowel, there were numerous serosal defects as well as venous congestion and poor vascularity at this location and as such, I did perform an additional segmental small-bowel resection using another firing of the KENNY blue load 75 mm stapler. Now that we had healthy ends of ascending colon as well as distal ileum, these were aligned in a [id number] functional end-to-end fashion and a single suture of 3-0 PDS was placed in the antimesenteric aspect to hold them in alignment. The antimesenteric corners of the staple lines were removed with curved Cardoza scissors and another firing of the KENNY blue load 75 mm stapler was carried out to create the anastomosis by placing each limb of the stapler down the enterotomies clamping and firing. The common enterotomy was now elevated between Allis clamps and was closed using a TX blue load 60 stapler. A 3-0 PDS suture was placed in the crotch of the staple line to act as an anti-tension stitch and I proceeded to oversew the TX staple line using several sutures of 3-0 PDS in standard interrupted Lembert fashion. Digital finger palpation of the anastomosis showed it to be widely patent. We continued taking down adhesions running the small bowel from distal to proximal all the way to the ligament of Treitz and then back again showing no further adhesions noted. The abdomen was irrigated and the irrigant ran clear. I then closed the fascial incision using looped #1 PDS in standard running fashion. Skin was closed with skin leeanne and a Prevena topical wound VAC device was placed over top in standard fashion. At the end of the procedure, all instrument, needle and sponge counts were correct. The patient tolerated the procedure without [facility] [address] [place] [address] OPERATIVE REPORT Name: CASSANDRA CALERO Room #: 359-P [facility] IN M.R.#: [id number] Admission: 10/07/18 Attend Phys: Madi Santiago Discharge: 10/21/18 Date of : 56 Report #: [id number] incident, was awakened in the Operating Room, transitioned to the Recovery Room in stable condition with no apparent complications. <ELECTRONICALLY SIGNED> By: Manolo Wyatt MD, FACS 10/22/18 0901 [id number] Manolo Wyatt MD, FACS /nt
[2018-10-22] MEDS ORDERED: AUGMENTIN 875-1 EACH PO (18:24)
== END 2018-10-21 14:37 | disposition home or self-care (01) | DRG 329 ==
LOC: ER 13:42 → EROBS 15:07 → 4W 15:07 → 3W 10-11 05:24
PROVIDERS: Nurse Practitioner Family; Physician Assistant; Surgery; ADMIT Hospitalist
DX: K56.50 Intestinal adhesions [bands], unspecified as to partial versus complete obstruction (principal); K29.71 Gastritis, unspecified, with bleeding; E43 Unspecified severe protein-calorie malnutrition; J69.0 Pneumonitis due to inhalation of food and vomit; K56.7 Ileus, unspecified; E78.5 Hyperlipidemia, unspecified; K21.9 Gastro-esophageal reflux disease without esophagitis; Z68.25 Body mass index [BMI] 25.0-25.9, adult; Z90.49 Acquired absence of other specified parts of digestive tract; Z90.710 Acquired absence of both cervix and uterus; Z87.891 Personal history of nicotine dependence; Z88.2 Allergy status to sulfonamides; Z88.5 Allergy status to narcotic agent; Z88.8 Allergy status to other drugs, medicaments and biological substances; Z82.49 Family history of ischemic heart disease and other diseases of the circulatory system; Z80.8 Family history of malignant neoplasm of other organs or systems
CPT/HCPCS: 10045; 10879; 27000; 50010; 50093; 50101; 50386; 50455; 50953; 51412; 51435; 51708; 51712; 56524; 56527; 56530; 57092; 70005

== ENCOUNTER 2018-10-22 15:18 | Inpatient (IN) | payer OTHER ==
[~2018-10-22] VITALS: Ht 165.1 cm; Wt 73.9 kg
[2018-10-22 15:18] VITALS: BP 108/62
[~2018-10-22 15:18] MED LIST: ACETAMINOPHEN325 M1 PO; COLACE100 MG PO; HYDROCODON-ACE1 EAC7 PO; MIRALAX17 GM PO; NEURONTIN 300300 M1 PO; NOHOMEMEDICATIONS; ONDANSETRON HCL4 M2 PO; PROTONIX 20 MG20 M1 PO; SIMETHICON CHEW80 M1 PO
[2018-10-22 16:03] LABS: ABSOLUTE NEUTROPHILS 10.3 thou/uL (1.4-8.2); BASOPHILS 0.5 % (0.0-2.0); EOSINOPHILS 1.7 % (0.0-3.0); HEMATOCRIT 34.3 % (37.0-47.0); HEMOGLOBIN 11.6 gm/dL (12.0-15.0); LYMPHOCYTES 12.3 % (24.0-44.0); MCH 29.7 pg (26.0-34.0); MCHC 33.9 g/dL (28.0-37.0); MCV 87.6 fL (80.0-100.0); MONOCYTES 7.8 % (1.0-8.0); PLATELET COUNT 486 thou/uL (150-400); POLYS 77.7 % (36.0-66.0); RBC 3.91 mil/uL (4.20-5.00); RDW 13.4 % (10.5-14.5); WBC 13.2 thou/uL (4.0-11.0)
[2018-10-22 16:13] LABS: CALCIUM 8.6 mg/dL (8.5-10.1); CREATININE 0.8 mg/dL (0.6-1.0); POTASSIUM 3.5 mmol/L (3.5-5.1)
[2018-10-22] MEDS ORDERED: AUGMENTIN 875-1 EACH PO (18:24)
[2018-10-22 18:57] VITALS: BP 102/77
[2018-10-22 19:28] VITALS: BP 129/63
--- NOTE | 2018-10-22 19:50 | NUR ---
REPORT GIVEN BY DAY SHIFT RN. PATIENT PAIN MEDICATION GIVEN. PATIENT TALKING ON THE PHONE AT BEDSIDE.
--- NOTE | 2018-10-22 19:50 | NUR ---
PATIENT AWAITING TRANSPORT TO THE FLOOR AT THIS TIME.
[2018-10-22 20:28] VITALS: BP 114/56
[2018-10-23 04:24] VITALS: BP 97/57
[2018-10-23 05:09] LABS: HEMATOCRIT 32.3 % (37.0-47.0); HEMOGLOBIN 10.7 gm/dL (12.0-15.0); MCH 29.1 pg (26.0-34.0); MCV 88.2 fL (80.0-100.0); RBC 3.66 mil/uL (4.20-5.00); RDW 13.5 % (10.5-14.5); WBC 10.4 thou/uL (4.0-11.0)
[2018-10-23 05:28] LABS: ALBUMIN 1.8 g/dL (3.4-5.0); CALCIUM 8.2 mg/dL (8.5-10.1); CREATININE 0.6 mg/dL (0.6-1.0); MAGNESIUM 1.9 mg/dL (1.8-2.4); POTASSIUM 3.4 mmol/L (3.5-5.1); TOTAL BILIRUBIN 0.5 mg/dL (<0.1-1.0); TOTAL PROTEIN 5.1 g/dL (6.4-8.2)
[2018-10-23 07:50] VITALS: BP 110/68
--- NOTE | 2018-10-23 13:24 | NUR ---
WOUND CONSULT: PT. WAS SEEN TODAY BY DR. SALVADOR AND MYSELF. PT. HAS A MIDLINE ABDOMINAL INCSION FROM A BOWEL RESECTION THAT WAS COMPLETED ON 10/13/[address] MENDOZA. PT. INCSION IS DRAINING PURLENT DRAINAGE WITH A FOUL ODOR. UPON INSPECTION THERE APPEARS TO BE A SEROMA THAT NEEDS TO DRAIN. PLAN WILL BE FOR PT. TO CONTINUE ON ANTIBOTICS FOR THE NEXT [address] SALVADOR WILL REMOVE SHAHEED AND DRAIN THE INCSION. WE WILL DECIDE AT THAT TIME WHAT DRESSING WILL BE BEST FOR THIS PT. RECOMMENDATIONS: WOUND CARE TO MIDLINE ABDOMINAL INCSION: GENTLY CLEANSE, COVER WITH ABD, SECURE WITH TAPE, COMPLETE CARES DAILY AND PRN. PT. AND STAFF NURSE WERE INSTRUCTED ON PLAN OF CARE.
--- NOTE | 2018-10-23 15:28 | NUR ---
PT ADMITTED RELATED TO POST OP WOUND INFECTION. PT IS FAMILIAR TO CM FROM PREVIOUS ADMISSION. CM ROLE INTRODUCED. PT LIVES IN A MOBILE HOME WITH HER SIG OTHER 4 STEPS TO ENTER AND NO STEPS INSIDE. PT HAD DISCHARGED HOME 10/21/18 WITH [facility]. PT INDICATED SHE PLANS TO RETURN HOME ONCE MEDICALLY STABLE. CM TO FOLLOW INDICATED WITH DC PLANNING.
[2018-10-23 17:14] VITALS: BP 98/57
--- NOTE | 2018-10-23 17:55 | NUR ---
Pt vs stable through out the shift. Wound dressing changed almost every hour, incision had all leeanne intact. Draining brownish yellow purulent fluid. Seen by wound care team and Dr. Frances. Plan is for leeanne to be removed and fluid drained. Ativan ordered prn. Kpet pt confortable, requesting for a bath in the am.
[2018-10-23 19:05] VITALS: BP 94/55
[2018-10-24 04:18] VITALS: BP 92/52
--- NOTE | 2018-10-24 06:09 | NUR ---
Pt. rested quietly at intervals during the night when checked on during frequent rounds. She c/o abdominal pain and was given po pain meds (see emar) with some relief of pain noted. Abdominal dressing changed times two during the night due to moderate amount of brownish colored drainage.
[2018-10-24 08:30] VITALS: BP 98/64
--- NOTE | 2018-10-24 09:46 | HC ---
[facility] [place] [address] CONSULTATION Name: CASSANDRA CALERO Room #: 456-P [facility] IN M.R.#: [id number] Admission: 10/22/18 Attend Phys: Madi Santiago Discharge: Date of : 56 Report #: [id number] THIS REPORT FOR: //name// CC: Dr. Yoselin WASSERMAN physician/PCP Madi Santiago DATE OF SERVICE: 10/22/2018 ATTENDING PHYSICIAN: Madi Santiago MD REASON FOR CONSULTATION: Abdominal wall abscess. HISTORY OF PRESENT ILLNESS: A 57-year-old white woman, recently discharged from [facility] on 10/20/2018 after having undergone exploratory laparotomy, ileocecectomy and lysis of adhesion. The patient is admitted through the Emergency Room with history of abdominal pain and abdominal wall drainage of foul smelling brownish color fluid. The patient has recent abdominal wound and erythema around the wound. No obvious fever, mildly hypotensive on admission. PAST MEDICAL HISTORY: Hysterectomy. Appendectomy. Colon resection for possible diverticular abscess in 07/2016 in [place]. Dyslipidemia. Cigarette smoking. DRUG ALLERGIES: SULFA, MORPHINE, CEPHALEXIN, KETOROLAC. MEDICATIONS: The patient is currently on vancomycin 750 mg IV every 12 hours after loading dose of 1500 mg, Zosyn 3.375 grams IV every 8 hours. She is also receiving treatment with pantoprazole, gabapentin, insulin lispro, p.r.n. glucose glucagon, p.r.n. hydrocodone, p.r.n. acetaminophen, p.r.n. zolpidem, p.r.n. ondansetron, p.r.n. nitroglycerin, p.r.n. fentanyl, normal saline 1000 mL IV every 13 hours. SOCIAL HISTORY: See H and P, old records. FAMILY HISTORY: See H and P, old records. REVIEW OF SYSTEMS: As above and see H and P. PHYSICAL EXAMINATION: GENERAL: Well-developed woman, afebrile since admission. VITAL SIGNS: Temperature 98.2, pulse 88, respirations 16, BP 110/68. On 10/21/2018, her blood pressure was low at 92/42. Intake and output not available. O2 saturation 98% on room air. HEENMT: Head normocephalic, atraumatic. Pupils reactive. Mouth: Upper and [facility] [address] [place] [address] CONSULTATION Name: CASSANDRA CALERO Room #: 456-P [facility] IN M.R.#: [id number] Admission: 10/22/18 Attend Phys: Madi Santiago Discharge: Date of : 56 Report #: [id number] lower plates. NECK: Supple, no thyromegaly. LUNGS: Decreased breath sounds at bases. HEART: S1, S2. ABDOMEN: With surgical wound in the midline, erythema on the edges, the dressings are draining a brownish type fluid that is said to be foul smelling, I smell nothing. Abdomen tender on palpation. PELVIC AND RECTAL: Deferred. EXTREMITIES: No clubbing, cyanosis. NEUROLOGIC: Grossly within normal limits. LABORATORY DATA: Potassium 3.4, BUN 9, creatinine 0.6, total bilirubin 0.5, alkaline phosphatase 186. Albumin 1.8 g/dL. WBC on admission 13,200, on 10/22/2018 and today is 10,400, hemoglobin dropped to 10.7 g/dL today after intravenous hydration. The platelet count is 446,000. MICROBIOLOGY DATA: Blood cultures were obtained yesterday and also abdominal wound culture, they are all pending at the time of this dictation. RADIOLOGY EVALUATION: A CT scan of the abdomen and pelvis revealed an abdominal wall fluid collection with gas bowels compatible with possible abscess. There is also a second similar collection in lower abdominal wall. The deep pelvic fluid collection should suggest ascites on prior examination. The possibility of early abscess is entertained. Status post recent ileocecal resection is noted. ASSESSMENT: 1. Possibly abdominal wall and intra-abdominal abscess. 2. Status post exploratory laparotomy, lysis of adhesions and ileocecectomy. 3. Malnutrition. 4. Mild anemia. 5. Drug allergies as listed above. SUGGESTIONS: Recommend continue current antibiotics, vancomycin and Zosyn. The patient appears to have tolerated those well. Continue to monitor laboratory parameters. Suspect the patient will need the wound to be reexplored and fluids in the abdominal wall and intra-abdominal cavity drained. Dr. Santiago, thank you for requesting my suggestions. <ELECTRONICALLY SIGNED> By: Damián Davila MD 10/24/18 0946 [id number] Damián Davila MD /nt
--- NOTE | 2018-10-24 12:56 | NUR ---
WOUND FOLLOW UP: PT. WAS SEEN TODAY BY DR. SALVADOR AND MYSELF. DR. SALVADRO COMPLETED A BEDSIDE I&D OF MIDLINE INCSION TODAY. SHAHEED WERE REMOVE AND SEROUS WAS OPENED AND DRAINED. PRE DEBRIDEMENT MEASUREMENTS WERE: 10.6 X 0.0 X 0.0, POST DEBRIDEMENT MEASUREMENTS WERE: 10.6 X 3.3 X 5.2. PT. TOLERATED PROCEDURE WELL. RECOMMENDATIONS: WOUND CARE TO MIDLINE ABDOMEN: GENTLY CLEANSE AREA WITH WOUND CLEANSER OR NORMAL SALINE, PACK WITH DAKIN MOIST KERLIX, COVER WITH ABD, SECURE WITH TAPE, COMPLETE CARES BID. PT. AND STAFF NURSE WERE INSTRUCTED ON PLAN OF CARE.
[2018-10-24 15:58] VITALS: BP 87/51
--- NOTE | 2018-10-24 16:42 | NUR ---
IF PT IS TO DISCHARGE OVER THE WEEKEMD ORDERS FR HOME HEALTH WILL NEED T O BE FAXED TO .
--- NOTE | 2018-10-24 18:29 | NUR ---
Pt stable during the shift. [place] removed wound cavity drained and packed with kerlex soaked in saline, then covered with abd and secured with tape. All pain medication given. Wound packing and dressing changed once. Plan is to have a wound vac during the week by wound care team. POC carried out during the shift.
[2018-10-24 20:02] VITALS: BP 109/57
--- NOTE | 2018-10-25 01:39 | NUR ---
PAIN MED ADMINISTERED BEFORE DRSG CHANGE,PT TOLERATED WELL.IVF AND IV ABX INFUSING ORDERED.PT C/O NAUSEA X1 MANAGED WITH IV MED.PT UP ADLIB TO THE BR.HEATER IN PT'S ROOM MAKING NOISE,WORK ORDER PUT IN,PT GIVEN OPTION TO MOVE TO ANOTHER ROOM AFTER MAINTAENACE LOOKED AT IT,PT STATED THAT SHE WILL MANAGE IT FOR THE NIGHT.PT RESTING COMFORTABLY ON HER BED AT THIS TIME,CALL LIGHT WITHIN REACH.
[2018-10-25 04:20] VITALS: BP 114/61
[2018-10-25 09:24] VITALS: BP 89/55
[2018-10-25 15:00] VITALS: BP 101/62
--- NOTE | 2018-10-25 18:40 | NUR ---
ASSUMED PT CARE AT 0700H. PT A&O X 4. PT HAS NO S/S OF DISTRESS. PT STATES PAIN MED GIVEN BEFORE DRSGN CHANGE. PT ABD DRS CHANGED. ITS C/D/I. PT ABLE TO AMBULATE TO BEDSIDE COMMODE AND LOOKS FORWARD TO START WALKING. AN ABD BINDER GIVEN TO PT TO START. PT TRANSFERED TO SICU ON CART AND IV. PT TRANSFERED WITH TWO STAFF ACCOMPANIED WITH FAMILY TO RM 222.
[2018-10-25 19:26] VITALS: BP 119/60
--- NOTE | 2018-10-26 05:38 | NUR ---
PATIENT ALERT AND ORIENTED X4. UP TO BSC W/O ASSIST. PATIENT HAS DIARRHEA. WOUND CARE DONE PER ORDER, DRESSING DRY AND INTACT. IVF INFUSING W/O COMPLICATION. MEDICATED FOR PAIN X3 DURING THE NIGHT. BS MONITORED PER ORDER. FAMILY PRESENT THROUGHOUT THE NIGHT. RESTING QUIETLY. WILL MONITOR.
[2018-10-26 08:00] VITALS: BP 103/69
--- NOTE | 2018-10-26 08:17 | NUR ---
PT IS A&0X4, SLIGHTLY ANXIOUS, GRANDAUGHTER AT BEDSIDE, HEARING IMPAIRED, HAD BLE SWELLING WHICH SHE STATES IS ACTUALLY BETTER ALREADY. AMB STEADY, USES CALL LIGHT FOR NEEDS, BP LOW YET PT STATES THIS IS HER NORM. ENCOURAGED HER TO USE CALL LIGHT FOR ANY NEEDS
[2018-10-26 19:53] VITALS: BP 97/59
--- NOTE | 2018-10-27 03:19 | NUR ---
PATIENT ALERT AND ORIENTED X4. UP TO BSC W/O ASSIST. IVF INFUSING W/O COMPLICATION. DRESSING CHANGED TO ABDOMEN PER ORDER. MODERATE AMOUNT OF LIGHT YELLOW DRAINAGE AT TIME OF CHANGE - NO ODOR NOTED. DRESSING DRY AND INTACT. MEDICATED FOR PAIN BEFORE DRESSING CHANGE AND ONE TIME DURING THE NIGHT AT TIME OF THIS NOTE. EDEMA +1 TO BILATERAL FEET AND DRYNESS NOTED. NEW ORDERS NOTED FOR ELEVATION OF FEET AND CREAM TO THEM ALSO BID. FAMILY AT BEDSIDE THROUGHOUT THE NIGHT. RESTING QUIETLY. WILL MONITOR.
[2018-10-27 06:41] LABS: HEMATOCRIT 27.7 % (37.0-47.0); HEMOGLOBIN 9.4 gm/dL (12.0-15.0); MCV 88.4 fL (80.0-100.0); RBC 3.14 mil/uL (4.20-5.00); RDW 13.5 % (10.5-14.5); WBC 9.6 thou/uL (4.0-11.0)
[2018-10-27 07:02] LABS: ALBUMIN 1.5 g/dL (3.4-5.0); CALCIUM 7.7 mg/dL (8.5-10.1); CREATININE 1.4 mg/dL (0.6-1.0); TOTAL BILIRUBIN 0.3 mg/dL (<0.1-1.0); TOTAL PROTEIN 4.9 g/dL (6.4-8.2)
[2018-10-27 07:11] LABS: POTASSIUM 2.5 mmol/L (3.5-5.1)
[2018-10-27 08:15] VITALS: BP 102/57
--- NOTE | 2018-10-27 08:46 | HC ---
[facility] [place] [address] CONSULTATION Name: GALILEACASSANDRA Room #: 222-P ADM IN M.R.#: [id number] Admission: 10/22/18 Attend Phys: Madi Santiago Discharge: Date of : 56 Report #: [id number] THIS REPORT FOR: //name// CC: Dr. Davila [facility] physician/PCP Madi Santiago DATE OF SERVICE: 10/24/2018 WOUND CARE PROCEDURE NOTE PERSONAL PHYSICIAN: Manolo Wyatt M.D. CHIEF COMPLAINT: Abdominal wall abscess. HISTORY OF PRESENT ILLNESS: This is a 57-year-old white female who underwent small bowel resection approximately 11 days ago. Postoperatively, the patient developed what initially was thought to be a seroma underneath the incisional line. The patient was admitted through the Emergency Department yesterday. CT scan showed fluid collections in the superior and posterior aspect of the incisional line. There was erythema, warmth and purulent drainage coming from the wound itself and it was felt that it would be best that the wound was opened up. The patient was agreeable to doing the procedure. PREPROCEDURE DIAGNOSES: 1. Abdominal wall surgical wound incisional abscess. 2. Status post partial colectomy for small-bowel obstruction. 3. Severe protein-calorie malnutrition with albumin of 1.8. POSTPROCEDURE DIAGNOSES: 1. Abdominal wall surgical wound incisional abscess. 2. Status post partial colectomy for small-bowel obstruction. 3. Severe protein-calorie malnutrition with albumin of 1.8. DESCRIPTION OF PROCEDURE: After a timeout was taken, consent was obtained. The patient had 1% lidocaine with epinephrine used along the incisional line for anesthesia. A total of 7 mL of lidocaine was used. Then, all the leeanne were removed without difficulty. Then, using a #15 blade, the incisional line was incised open entirely down to the fascial layer. There was copious amounts of purulent material that came out of the wound. A wound culture was obtained from the deep parts of the wound and sent for processing. 100% of the incision was debrided. Initial measurements were 10.6 cm in length, with no depth or width because it was a closed incision. Post-procedure measurements were 10.6 x 3.3 x 5.2 cm, so a total of 35 square centimeter incision and drainage. Wound was irrigated out with saline and then packed with normal saline moist gauze. We will start packing Dakin's quarter-strength gauze into the wound twice daily. I [address] [address] CONSULTATION Name: CASSANDRA CALERO Room #: 222-P [facility] IN .R.#: [id number] Admission: 10/22/18 Attend Phys: Madi Santiago Discharge: Date of : 56 Report #: [id number] have told the patient that we would give her sedation prior to dressing changes given her extreme anxiety. The patient actually tolerated the procedure quite well and was pre-sedated with 2 mg of IV Ativan and 4 mg of IV Dilaudid, of which she tolerated well. Bleeding was minimal, easily controlled with pressure, less than 5 mL. The patient once again tolerated the procedure quite well. Questions were answered by the patient and the family. I have reviewed this with both Dr. Davila and Dr. Frances. IMPRESSION: A 35 square centimeter incision and drainage of an abdominal wall surgical incisional abscess. <ELECTRONICALLY SIGNED> By: Gume Trujillo MD 10/27/18 [id number] Gume Trujillo MD /nt
--- NOTE | 2018-10-27 08:47 | HC ---
[facility] [address] [address] CONSULTATION Name: CASSANDRA CALERO Room #: 222-P ADM IN M.R.#: [id number] Admission: 10/22/18 Attend Phys: Madi Santiago Discharge: Date of : 56 Report #: [id number] THIS REPORT FOR: //name// CC: FAM physician/PCP Madi Santiago DATE OF SERVICE: 10/23/2018 PERSONAL PHYSICIAN: Dr. Wyatt. CHIEF COMPLAINT: Abdominal wall wound. HISTORY OF PRESENT ILLNESS: This is a 57-year-old white female who is now postoperative day #10 status post small bowel resection for obstruction with extensive lysis of adhesions. The patient states she was otherwise doing well since her discharge from the hospital on 10/20/2018. Home health nurse came in yesterday and noticed there was increased amount of drainage coming from the midline incision, which the patient described as a foul smelling bloody drainage. At that point in time, the patient was brought to the Emergency Department and a CAT scan was performed, which showed 2 pockets of fluid, most likely consistent with a hematoma versus seroma. We have been asked to follow the patient and possibly open up the wound at the bedside for drainage and then possible negative pressure wound therapy. The patient herself is extremely anxious and states that she understands that she needs to have this opened, but would like sedation at the bedside prior to me doing this tomorrow. The patient denies any other associated wounds at this time. PAST MEDICAL HISTORY: Significant for appendectomy, colon resection secondary to small-bowel obstruction, partial colectomy. CURRENT MEDICATIONS: Multiple. I reviewed the patient's medication list. DRUG ALLERGIES: Multiple. I reviewed the patient's allergy list. SOCIAL HISTORY: The patient states she does not smoke. The patient has a history of previous methamphetamine abuse. Lives at home with her . FAMILY HISTORY: Not pertinent. REVIEW OF SYSTEMS: CONSTITUTIONAL: The patient denies fevers, but does have complaints of chills. NEUROLOGIC: The patient has numbness, tingling in arms and legs. EYES: No complaints. ENT: No complaints. CARDIAC: The patient denies chest pain, palpitations, peripheral edema. RESPIRATORY: The patient denies shortness breath, cough or wheezes. [address] [address] CONSULTATION Name: CASSANDRA CALERO Room #: 222-P [facility] IN M.R.#: [id number] Admission: 10/22/18 Attend Phys: Madi Santiago Discharge: Date of : 56 Report #: [id number] GASTROINTESTINAL: The patient complains of abdominal pain around her incision, but no nausea, vomiting or diarrhea. GENITOURINARY: The patient denies urgency or frequency. MUSCULOSKELETAL: No complaints. SKIN: The patient has an area of erythema around her superior aspect of her abdominal wall incision with small amount of bloody drainage coming from the site itself. PHYSICAL EXAMINATION: VITAL SIGNS: The patient is afebrile, pulse 84, respirations 17, BP 98/57. GENERAL: This is an alert and oriented x 3, extremely anxious white female who is in mild distress secondary to symptoms. HEENT: Normocephalic, atraumatic. Mucous membranes are dry. Pupils are round. Sclerae white. NECK: Supple, nontender, without JVD. BACK: Nontender. LUNGS: Clear. HEART: Regular. ABDOMEN: Soft, midline incision shows increased erythema, warmth and tenderness in the superior aspect of the surgical wound. Ronan are intact. With probing, I can get a Q-tip at approximately 4 cm in the superior aspect which had some bloody drainage, which was somewhat cloudy. The patient would not let me do any further exam of the abdomen at this time. There was no rebound or guarding. EXTREMITIES: The patient moves all extremities without difficulty. NEUROLOGIC: Cranial nerves 2-12 grossly intact. Motor and sensory grossly intact. LABORATORY DATA: White count 10.4, this is down from 13.2, hemoglobin is 10.7 down from 11.6. Lactic acid is 1.4. Albumin is 1.8. IMPRESSION: 1. Infected surgical abdominal wall wound, most likely secondary to hematoma versus seroma. 2. Status post colonic resection, postoperative day 10. 3. Small-bowel obstruction. 4. Severe protein-calorie malnutrition with albumin of 1.8. 5. Generalized debility. PLAN: At this time, we will plan on doing a bedside incision and drainage in the morning. I have reviewed this with Dr. Frances, surgeon on-call. He is very comfortable with this. Patient would prefer to have this done at the bedside as opposed to having another operative procedure. We will make sure we maximize the patient's oral protein supplementation for healing. The patient is currently on IV antibiotics per the hospitalist. Continue all other current medications and we will continue to follow the patient while she is here. [facility] [address] [facility] [place] [address] CONSULTATION Name: CASSANDRA CALERO Room #: 222-P ADM IN M.R.#: [id number] Admission: 10/22/18 Attend Phys: Madi Santiago Discharge: Date of : 56 Report #: [id number] I appreciate the ability to consult. <ELECTRONICALLY SIGNED> By: Gume Trujillo MD 10/27/18 0847 [id number] [id number] Gume Trujillo MD /nt
--- NOTE | 2018-10-27 10:56 | NUR ---
PATIENT CARE WAS ASSUMED AT 0715.PATIENT IS ALERT AND ORIENTED X4. SHE IS ABLE TO TRANSFER ON HER OWN TO THE [facility].PT IS CONTINENT OF BOWEL,AND URINE.HAS PAIN 8/10 WILL GIVE PAIN MEDS DURING MORNING MED PASS.IV HAS FLUIDS INFUSING IN LEFT AC.PATIENT HAS EDEMA IN FEET BILATERALLY,FEET ARE ELEVATED AND PLACED ON PILLOWS.VITALS ARE STABLE.PATIENT HAS CRITICAL LAB OF POTASSIUM 2.5, DOCTOR WAS NOTIFIED OF LAB AND ORDERS WERE GIVEN TO GIVEN MEDICATION.PT HAS DRESSING THAT IS TO BE CHANGED BID,PT SHOULD BE PRE-MEDICATED BEFORE DRESSING CHANGE.PT WILL BE TRANSFERED TO [facility] PER .CALL LIGHT, PHONE, AND PERSONAL BELONGINGS ARE WITHIN REACH.
--- NOTE | 2018-10-27 11:22 | NUR ---
PATIENT WILL BE TRANSFERING TO [facility] TO ROOM 456 FROM [facility].REPORT WAS GIVEN TO NURSE.PATIENT WILL BE TRANSFERED TO FLOOR BY NURSE.
--- NOTE | 2018-10-27 11:32 | NUR ---
Nutrition: REC change IVFs to Clinimix PPN at same rate with 250 ml 20% lipids MWF to prevent further nutritional decline til po improves. Pt with severe malnutrition/prolonged inadequate intake.
--- NOTE | 2018-10-27 12:37 | NUR ---
SW reviewed chart and spoke with nursing and attending physician. Pt was [facility] to [facility] from . Pt may need wound vac placed and possibly IV abx. Pt will be transferred out of [facility] to med/surg tele. MELISSA is following to assist as needed with discharge planning.
--- NOTE | 2018-10-27 12:49 | NUR ---
PATIENT HAS ALL OF HER PERSONAL BELONGINGS,FAMILY IS AT BEDSIDE.TRANSPORTER WILL TRANSFER PATIENT INSTEAD OF NURSE.CHART IS WITH TRANSPORTER.
[2018-10-27 15:00] VITALS: BP 113/61
--- NOTE | 2018-10-27 20:06 | NUR ---
Received pt from [facility], pt has bilatelral foot edema. Pain medication given. Would dressing changed by wound care team, pain medications given as well. Pt is able to use bedside commode, had has 2 bouts of diarrhea medication given. Pt reqiested for a PIC line due to prologed used of fluids and anti biotics.
[2018-10-27 20:43] VITALS: BP 124/71
--- NOTE | 2018-10-27 21:15 | NUR ---
VASCULAR ACCESS CONSULTED FOR A LINE FOR MULT ABX AND POSSIBLE TPN/PPN. PT HAS AN ABD ABCESS AND IS MALNOURISHED. PT SIGNED CONSENT AND UNDERSTANDS THE RISKS AND BENEFITS. PER HOSPITAL P&P HER RUABRACHIAL WAS ACCESSED WITH US GUIDE X1 ATTEMPT. A 4FRDBLPICC WAS TRIMMED AT 42CM AND INSERTED TO 40CM WITH A BRISK BLOOD RETURN. THE LINE WAS RELEASED WITH A CXR DETERMINING THE TIP TO BE AT THE CAJ AND IN GOOD POSITION.
[2018-10-28 03:35] VITALS: BP 109/54
--- NOTE | 2018-10-28 05:37 | NUR ---
PT HAVING FREQUENT LIQUID BMS AND ABDOMINAL PAIN. PRN PAIN MEDICATIONS GIVEN THREE TIMES DURING NIGHT. ONE DOSE OF ZOFRAN GIVEN FOR NAUSEA. NO VOMITING. ABDOMINAL DRESSING REMAINED CLEAN AND INTACT. VANCOMYCIN TROUGH DRAWN AND LEVEL WAS 30. PHARMACY NOTIFIED AND ORDER GIVEN TO STOP CURRENT DOSE. PHARMACY MANAGING VANC. ALL MEDICATIONS TAKEN PRESCRIBED AND IS PROGRESSING TOWARDS MEETING GOALS.
[2018-10-28 05:43] LABS: ALBUMIN 1.3 g/dL (3.4-5.0); CALCIUM 6.9 mg/dL (8.5-10.1); CREATININE 1.2 mg/dL (0.6-1.0); PHOSPHORUS 2.8 mg/dL (2.5-4.9)
[2018-10-28 05:48] LABS: POTASSIUM 2.3 mmol/L (3.5-5.1)
[2018-10-28 08:01] VITALS: BP 101/53
--- NOTE | 2018-10-28 13:14 | NUR ---
Nutrition: RD initiating calorie count. Discussed with pt's need to record outside food consumed. RD will followup /.
--- NOTE | 2018-10-28 13:56 | NUR ---
CARE TEAM INDICATED THAT PT MAY BE MEDICALLY STABLE TO DISCHARGE HOME TOMORROW. WOUND VAC WAS ADMINISTERED TODAY. CN NOTIFIED STEPHAN WITH WOUND CARE THAT PHYSICAIN HAD INDICATED POSSIBLE DC TOMORROW. CM NOTIFED [facility] PT HAD BEEN ON SERVICE WITH THEM WEB INTERFACE DEVELOPER. CM TO CONTINUE TO FOLLOW INDICATED WITH DC PLANNING.
--- NOTE | 2018-10-28 14:45 | NUR ---
dp faxed referral to [facility] on patient, patient to dc tomorrow, patient on Vanco. Yris/yoana tayassistant case manager spoke with Lupis at facility about this.
--- NOTE | 2018-10-28 15:10 | NUR ---
WOUND FOLLOW UP: PT. WAS SEEN TODAY BY DR. DUFF AND MYSELF. PT. WAS STARTED ON WOUND VAC THERAPY AT THIS TIME. MEASUREMENTS TODAY WERE: 9.3 x 4.1 x 4.3 PT. TOLERATED WELL. RECOMMENDATIONS: CONTINUE WITH CURRENT PLAN OF CARE. PT. AND STAFF NURSE WERE INSTRUCTED ON PLAN OF CARE.
[2018-10-28 15:28] VITALS: BP 109/56
--- NOTE | 2018-10-28 17:12 | NUR ---
A/OX4, PAIN MANAGED WITH MEDICATIONS, DIARRHEA THROUGH OUT THE SHIFT WITH STOOL OPTAINED FOR CDIFF. ON CDIFF PRECAITIONS. SEEN BY WOUND CARE NURES TODAY WITH A WOUND VAC PLACED. DR MATHIS SPOKE TO PT AND REGARDING POSSIBLE DC TO LTAC ONCE SHE IS MEDICALLY STABLE. CALLS APPROPRIATELY. CALL LIGHT IN REACH. CONTINUE TO [facility]
[2018-10-28 19:28] VITALS: BP 133/70
[2018-10-29 03:20] VITALS: BP 101/58
--- NOTE | 2018-10-29 06:22 | NUR ---
given immodium for diarrhea x 2 doses. small amounts of diarrhea mixed in with urine at a time. moderate pain relief with PO Dilaudid, also receiving Bentyl for abd cramping. denies nausea. wound vac operational, seal maintained. responds well to emotional support for anxiety, frustration, overall discomfort.
[2018-10-29 07:30] VITALS: BP 96/52
--- NOTE | 2018-10-29 11:21 | NUR ---
Nutrition follow-up: Spoke w/ patient regarding PO intake. Very little information recorded for calorie count. Pt reports somewhat increased intake. She doesn't feel hungry but says she has been making herself eat. Pt was agitated during vist. Per CM note, possible d/c today. Will need to follow PO intake.
[2018-10-29 14:07] VITALS: BP 103/55
--- NOTE | 2018-10-29 14:36 | NUR ---
WOUND FOLLOW UP: PT. WAS SEEN TODAY BY DR. DUFF AND MYSELF. PT. WOUND IS VAC IS FUNCTIONING PROPERLY AT THIS TIME. RECOMMENDATIONS: CONTINUE WITH CURRENT PLAN OF CARE. PT. AND STAFF NURSE WERE INSTRUCTED ON PLAN OF CARE.
--- NOTE | 2018-10-29 15:29 | NUR ---
CM VISITED PT AND SIG OTHER EARLIER THIS MORNING AND STARTED TO DISCUSS DISCHARGE PLANNING. CM INDICATED THAT PT'S INSURANCE WOULD LIKLEY NOT AUTHORIZE AN LTAC AND PROVIDED THEM A LIST OF SKILLED FACILITIES THAT ARE IN NETWORK WITH THEIR INSURANCE. ID THEN CAME AND VISITED PT AND SIG OTHER, SM INDICATED CM WOULD VISIT LATER THIS AFTERNOON. CM FOLLOWED UP THIS AFTERNOON AND AGAIN INDICATED THAT UPON DC WE'D BE LOOKING AT HOME WITH IV ABX INFUSION AND HOME HEALHT, SKILLED FOR WOUND CARE AND IV ABX, OR TRY TO GET INSURANCE AUTH FOR LTAC. BOTHER WERE ADAMANT THAT PT WOULD NOT GO TO A SKILLED REHAB FACILITY AND THAT PT COULD NOT GO HOME. CM INDICATED THAT WE COULD ATTEMPT TO SEE IF INSURANCE WOULD AUTH LTAC AT [facility]. CM INDICATED THAT CM WOULD SPEAK WITH [facility] TOMORROW AND WOULD FOLLOW UP WITH THEM. CM INDICATED THAT CM WASN'T SURE WHEN WERE WERE ANTICIPATING DC AT THIS TIME THAT WE WERE JUST LOOKING AT [facility]. PT'S SIG OTHER INDICATED THAT PT HAD PANIC ATTACK AFTER CM LEFT THIS AM AND THAT SHE WAS GETTING UP SET NOW. CM REITERATED THAT PT WAS NOT TO DC THIS GIVEN DAY BUT THAT WE WERE JUST DISCUSSING DC OPTIONS. CM LEFT ROOM. PT'S SIG OTHER CAME OUT TO NURSES STATION INDICATING THAT THEY NEEDED A NURSE B/C PT WAS AGITATED AND WAS ABOUT TO PULL OUT HER IVS STATED THAT IF SOMEONE DIDN'T COME SOON HE WOULD CALL 911. ALTITUDE CHAMBER TECHNICIAN AND NURSE ATTENDED TO PT. CM TO FOLLOW INDICATED WITH DC PLANNING.
--- NOTE | 2018-10-29 18:15 | NUR ---
Pt was very agitated today with bouts of crying when CM would come and discuss options for discharge planning purposes. Both pt and are not mentally ready to be discharged at this point. All medication given. (+) generalized edema especially in both feet and ankles. Wound vac intact and draining well. Calorie count is not well documented as per RD, is at bed side. PIC line is patent. (+) diarrhea is noted , medication given.Anti anxiety and paqin medications given.
[2018-10-29 20:03] VITALS: BP 110/57
[2018-10-30 04:50] VITALS: BP 99/42
[2018-10-30 05:36] LABS: ALBUMIN 1.7 g/dL (3.4-5.0); CALCIUM 8.3 mg/dL (8.5-10.1); CREATININE 1.3 mg/dL (0.6-1.0); PHOSPHORUS 3.3 mg/dL (2.5-4.9)
[2018-10-30 05:43] LABS: POTASSIUM 2.9 mmol/L (3.5-5.1)
--- NOTE | 2018-10-30 06:07 | NUR ---
PT ANXIOUS AT BEGINNING OF SHIFT ABOUT DISCHARGE PLANS. BECAME TEARFUL. PT CONTINUES TO HAVE FREQUENT DIARRHEA. 2 DOSES OF IMMODIUM GIVEN DURING THE SHIFT. ALSO RECEIVED 2 DOSES OF PO PAIN MEDICATIONS AND 1 DOSE OF ZOFRAN FOR NAUSEA. WOUNDVAC DRESSING REMAINS CLEAN, DRY AND INTACT. PRN DOSE OF AMBIEN GIVEN AT BEDTIME. PT SLEPT WELL ONLY WAKING WHEN SHE NEEDED TO USE THE BATHROOM. PROGRESSING TOWARDS MEETING GOALS.
[2018-10-30 08:31] VITALS: BP 94/47
--- NOTE | 2018-10-30 14:04 | NUR ---
PHYSICIAN INDICATED THAT PT AND SIG OTHER WERE INTERESTED IN REFERRAL BEING SENT TO [facility]. PT'S SIG OTHER WENT AND TOURED THERE. FACILITY INDICATED THAT THEY AREN'T ABLE TO ACCEPT PT AT THEY ARE AT CAPACITY FOR THE NUMBER OF WOUND VACS THAT THEY ARE ABLE TO TAKE AT THIS TIME. CM CALLED [facility] TO SEE IF THEY WERE IN NETWORK WITH PT'S INSURANCE AND THEY ARE. THEY INDICATED THEY WOULD BE ABLE TO ACCEPT A WOUND VAC. ADDRESS AND PHONE NUMBER OF THE FACILITY WAS PROVIDED TO PT AND SIG OTHER FOR REVIEW. CM TO FOLLOW INDICATED WITH DC PLANNING.
--- NOTE | 2018-10-30 14:12 | NUR ---
Nutrition: Oral intake improving slowly. Calorie count indicates pt met 42% kcal needs, 35% protein needs over past 24 hrs. K+/Mg low indicating possible refeeding syndrome. Repleting. Prolonged inadequate intake with increased needs for wound healing and severe malnutrition. Has PICC line, would consider standard TPN at 40 mL/hr til po is adequate.
--- NOTE | 2018-10-30 14:19 | NUR ---
FAXED REFERRAL TO [facility] SPOKE WITH PRYIANKA IN ADM. AND THEY CANNOT ACCEPT PT. THEY ARE AT CAPACITY WITH WOUND VACS. DCP TO FOLLOW.
--- NOTE | 2018-10-30 14:26 | NUR ---
WOUND FOLLOW UP: PT. WAS SEEN TODAY BY DR. DUFF AND MYSELF. PT. WOUND VAC DRESSING IS C/D/I AT THIS TIME. PT. IS VERY ANXIOUS ABOUT DISCHARGE PLANNING. RECOMMENDATIONS: CONTINUE WITH CURRENT PLAN OF CARE. PT. AND STAFF NURSE WERE INSTRUCTED ON PLAN OF CARE.
--- NOTE | 2018-10-30 16:13 | NUR ---
FAXED REFERRAL TO [facility] SPOKE WITH RENE IN ADM. AND HE RECEIVED REFERRAL AND WILL REVIEW. DCP TO FOLLOW.
[2018-10-30 17:18] VITALS: BP 105/58
--- NOTE | 2018-10-30 18:35 | NUR ---
ASSUMED CARE 0700. A/OX4 PAIN MANAGED WITH MEDICATIONS, CONTINUES TO HAVE DIARRHEA. PT ANXIOUS REGARDING DISCHARGINE TO SNF. AT THIS POINT PT UNDERSANDS SHE WILL DC TOMORROW TO [facility]. USES CALL LIGHT APPROPRIATELY. CONTINUE TO MONITOR.
[2018-10-30 20:28] VITALS: BP 109/63
[2018-10-31 03:28] VITALS: BP 91/45
[2018-10-31 06:41] LABS: ALBUMIN 1.8 g/dL (3.4-5.0); CALCIUM 8.6 mg/dL (8.5-10.1); CREATININE 1.4 mg/dL (0.6-1.0); PHOSPHORUS 3.5 mg/dL (2.5-4.9); POTASSIUM 3.4 mmol/L (3.5-5.1)
[2018-10-31 08:10] VITALS: BP 87/41
[2018-10-31 09:57] VITALS: BP 98/57
[2018-10-31] MEDS ORDERED: ZOSYN 3.373.375 GM/1 IV (10:29)
[2018-10-31] MEDS ORDERED: COLESTID5 GM PO (10:29)
[2018-10-31] MEDS ORDERED: LIDOCAINE35.44 GM TOP (10:30)
[2018-10-31] MEDS ORDERED: ATIVAN1 MG PO (10:30)
[2018-10-31] MEDS ORDERED: DILAUDID 2 MG TA2 MG PO (10:30)
[2018-10-31] MEDS ORDERED: ACIDOPHILUS1 EAC4 PO (10:30)
--- NOTE | 2018-10-31 14:36 | NUR ---
cm placed call to [employer] rt checking on auth for pt to go to snf at [facility]. cm left message for toun ur with [employer] # [phone].
[2018-10-31 15:00] VITALS: BP 97/55
--- NOTE | 2018-10-31 15:14 | NUR ---
STILL AWAITING INSURANCE AUTH FOR PT TO GO TO [facility]. ID HAD WANTED TO SEE IF PT COULD GO TO [facility] BUT AND HE REACHED OUT TO THEM HIMSELF. CM CHECKED AND THEY ARE OUT OF NETWORK WITH PT'S INSURNACE. THEY NOTIFIED ID DOCTOR. IF AUTH IS RECEIVED OVER THE WEEKEND CONTACT RENE AT TO [facility] AND GET NUMBER FOR REPORT AND FAX FOR ORDERS. CHART COPY IS MADE. CM TO FOLLOW INDICATED WITH DC PLANNING.
--- NOTE | 2018-10-31 16:26 | NUR ---
DCP NOTIFIED BY RENE IN ADM, AT [facility] THAT INSURANCE DENIED SKILLED STAY AT FACILITY. RENE SAID THAT INSURANCE SAYS WE COULD DO PEER TO PEER WITHIN 14 DAYS. DCP TO FOLLOW.
--- NOTE | 2018-10-31 16:30 | NUR ---
DC BINDER AND WRAPPER PACKER INDICATED THAT SHE HAD HEARD FROM RENE IN ADMISSIONS AT [facility] AND HE INDICATED THAT INSURANCE HAD DENIED AUTH FOR ADMISSION FOR SKILLED POST ACUTE CARE STAY. UR NURSE AND DC BINDER AND WRAPPER PACKER TO GET NUMBER FOR PEER TO PEER TO PROVIDE TO PHYSICAIN. CM TO FOLLOW INDICATED WITH DC PLANNING.
--- NOTE | 2018-10-31 16:41 | NUR ---
WOUND FOLLOW UP: PT. WAS SEEN TODAY BY DR. DUFF AND MYSELF. PT. WOUND VAC DRESSING WAS CHANGED TODAY. MEASUREMENTS WERE: 8.6 X 3.8 X 3.2. PT. WOUND IS CLINICALLY BETTER. PT. TOLERATED PROCEDURE WELL. RECOMMENDATIONS: CONTINUE WITH CURRENT PLAN OF CARE. PT. AND STAFF NURSE WERE INSTRUCTED ON PLAN OF CARE.
[2018-10-31 19:49] VITALS: BP 95/50
--- NOTE | 2018-10-31 19:50 | NUR ---
PATIENT CONTINUES WITH DIARRHEA. LOMOTIL GIVEN BUT DID NOT FEEL IT HELPED. REQUESTING PAIN MED Q4H FOR ABD WOUND PAIN. HAS PARTIAL RELIEF. WOUND CARE CHANGED WOUND VAC TODAY. UP TO BSC INDEPENDENTLY AND TOLERATED WELL. WAS ABLE TO EAT A GOOD SUPPER. CONTINUED WITH IV ANTIBIOTICS. WAS HOPING TO DISCHARGE TODAY BUT DID NOT HEAR FROM INSURANCE FOR APPROVAL TO GO TO SNF. WILL PROBABLY GO ON SATURDAY.
[2018-11-01 04:38] VITALS: BP 97/55
--- NOTE | 2018-11-01 05:50 | NUR ---
A/O, calm and pleasant; diarrhea 4 times during the shift; c/o pain in abdoman, pain medication given and worked; patient was worried that the wound vac was too tight, wound doctor called no reponse, patient agreed to keep monitoring, no new complaint during the rest of the shift; vss, afebrile. lab reviewed, will keep monitoring.
[2018-11-01 08:37] VITALS: BP 99/47
[2018-11-01 11:26] LABS: HEMATOCRIT 29.2 % (37.0-47.0); HEMOGLOBIN 9.9 gm/dL (12.0-15.0); MCH 29.7 pg (26.0-34.0); MCHC 33.9 g/dL (28.0-37.0); MCV 87.5 fL (80.0-100.0); RBC 3.33 mil/uL (4.20-5.00); RDW 13.9 % (10.5-14.5); WBC 9.6 thou/uL (4.0-11.0)
[2018-11-01 13:34] VITALS: BP 91/52
--- NOTE | 2018-11-01 14:59 | NUR ---
ASSUMED CARE AT 0700. AXOX4. SEEN BY ID AND STOOL COLLECTED FOR C.DIFF. WOUND VAC INTACT AND WORKING. PAIN MANAGED PER MD ORDER. STILL C/O DIARRHEA AND ADMIN BENTYL AND LOMOTIL. NO S/S ACUTE DISTRESS NOTED OR REPORTED AT THIS TIME. WILL CONT TO MONITOR FOR ANY CHANGES IN CONDITION.
--- NOTE | 2018-11-02 02:51 | NUR ---
PT WAS TRANSFERRED FROM TO THIS UNIT AT APPROX 2100.PT WAS OBSERVED CRYING AND VERY UPSET BECAUSE OF THE MOVE.MENTAL HEALTH SPECIALIST ON DUTY NOTIFIED,ORDER NOTED AND CARRIED OUT.PT STILL HAVING LOOSE STOOL.UP TO BSC WITH SBA.WOUND VAC IN PLACE IN HER ABD.PT RESTING ON HER BED AT THIS TIME.CALL LIGHT WITHIN REACH.
--- NOTE | 2018-11-02 03:30 | NUR ---
care assumed at 1900. orders given by greenhouse florist to transfer patient to . patient was upset, patient given reasons for the move. patient transfered to the unit by this nurse and staff. report given to 4e nurse.
[2018-11-02 04:30] VITALS: BP 91/52
[2018-11-02 08:34] VITALS: BP 95/61
--- NOTE | 2018-11-02 10:15 | NUR ---
AT THIS TIME PATIENT STATES THAT SHE FEELS FUNNY AND THAT HER LEFT ARM AND LEG ARE WEAK PATIENT IS HAVING SOME SLURRING OF SPEECH PER THIS NURSE NOTICING SLOW SPEECH. DR COULTER HERE AT BEDSIDE ORDERED 500 BOLUS NS FOR B/P ALSO WILL MOVE PATIENT TO 2ND FLOOR . PAGED NEURO FOR ORDERS FOR CT SCAN ORACLE [address] SQL DEVELOPER NOTIFIED. VS 97.8 12 77
[2018-11-02 12:10] LABS: HEMATOCRIT 28.1 % (37.0-47.0); HEMOGLOBIN 9.6 gm/dL (12.0-15.0); MCH 30.1 pg (26.0-34.0); MCHC 34.3 g/dL (28.0-37.0); MCV 87.9 fL (80.0-100.0); RBC 3.2 mil/uL (4.20-5.00); RDW 13.6 % (10.5-14.5); WBC 8.1 thou/uL (4.0-11.0)
[2018-11-02 12:25] LABS: ALBUMIN 1.8 g/dL (3.4-5.0); CALCIUM 8.3 mg/dL (8.5-10.1); CREATININE 1.4 mg/dL (0.6-1.0); POTASSIUM 3.7 mmol/L (3.5-5.1); TOTAL BILIRUBIN 0.3 mg/dL (<0.1-1.0); TOTAL PROTEIN 5.7 g/dL (6.4-8.2)
--- NOTE | 2018-11-02 13:46 | NUR ---
CALLED DR DAWN TO ASK IF PATIENT HAD SHAHEED TO ABDOMEN OR ANY OTHER CONTRAINDICATIONS TO PREVENT PATIENT FROM HAVING MRI. SPOKE WITH DR RICO WHO STATED THAT NO REASON PATIENT COULD NOT HAVE MRI. THIS NURSE CALLED WHO WILL SET UP MRI.
--- NOTE | 2018-11-02 15:32 | NUR ---
REPORT GIVEN TO TO CCU NURSE VAL IN ROOM 210. PT HAD MRI COMPLETED. PT'S BELONGINGS MOVED WITH PATIENT. MEDS IV ABT'S AND CHART TRANSFERRED WITH PATIENT.
[2018-11-02 16:05] VITALS: BP 112/78
--- NOTE | 2018-11-02 16:37 | NUR ---
PT CARE ASSUMED APPROX 1600. PT ALERT AND ORIENTED X4. DENIES PAIN AND SOA. PT HAS LOW GRADE FEVER. ASYMPTOMATIC. VS OTHERWISE STABLE. SPOUSE AT BEDSIDE. WOUND VAC INTACT. NO S/S OF CVA. NO DISTRESS NOTED.
--- NOTE | 2018-11-02 18:06 | NUR ---
PAIN MEDS GIVEN, PT APPEARS COMFORTBALE AT THIS TIME. VSS. SPOUSE REMAINS AT BEDSIDE. NO CLINICAL CHANGES SINCE PREVIOUS NOTE.
[2018-11-02 20:09] VITALS: BP 120/78
[2018-11-02 23:42] VITALS: BP 99/53
--- NOTE | 2018-11-03 03:15 | NUR ---
ASSESSMENT DOCUMENTED. AOX4. COMPLAINT OF PAIN ON THE ABDOMEN, SCORE OF 9/10, CONSTANT PRESSURE. COMPLAINT OF N/V. PRN MEDS FOR PAIN AND PRN MEDS FOR N/V GIVEN. SLEEPING PILL GIVEN REQUESTED BY THE PATIENT. STILL WITH LIQUIDITY STOOL. WOUND VAC ON, WOUND VAC DRESSING C/D/I. RIGHT DOUBLE LUMEN PICC, DRAWS BLOOD AND FLUSHES WELL. FF UP POC.
[2018-11-03 04:33] VITALS: BP 87/56
[2018-11-03 08:10] VITALS: BP 86/51
--- NOTE | 2018-11-03 09:54 | HC ---
[facility] [place] [address] CONSULTATION Name: GALILEACASSANDRA Room #: 210-P ADM IN M.R.#: [id number] Admission: 10/22/18 Attend Phys: Madi Santiago Discharge: Date of : 56 Report #: [id number] THIS REPORT FOR: //name// CC: [facility] physician/PCP Madi Santiago DATE OF SERVICE: 11/02/2018 HISTORY OF PRESENT ILLNESS: This is a 57-year-old female patient who indicates that she had a stroke affecting the left side of the body in . She does not remember fully, but she went to rehab for it. They thought the stroke was because her cholesterol was too high. She used to smoke that time. Now, she is admitted with abdominal problem and she was getting some pain medication and she had hypertension along with it and she was noticed to have weakness on the left side. She has had weakness started yesterday. She is pretty certain about it. She mentioned that weakness to the physicians rounding today and Neurology consult was requested, but she indicated it was there before she went to sleep yesterday. She did undergo a CT scan of the head as a protocol and that did not show any acute changes. REVIEW OF SYSTEMS: Positive for significant amount of abdominal problems. The notes multiple consultants were reviewed. A 14-point review of system was carried out from the records. PAST MEDICAL HISTORY: Positive for abdominal problem and a stroke. FAMILY HISTORY: Negative for early age stroke. SOCIAL HISTORY: She denies the use of tobacco now, but she used to smoke at one time. PHYSICAL EXAMINATION: NEUROLOGICAL: She is alert. She is responsive. She can follow simple and complex command. Cranial nerve examinations appear unremarkable. She is weak in the left upper and left lower extremity. Her position sense is intact. Tone is symmetrical. She does not have any cerebellar sign. I could not look at the patient's fundus. CARDIAC: Examination is unremarkable. ABDOMEN: Examinations indicate that she has a lot of problems there as summarized in other people's note. VITAL SIGNS: Blood pressure is 95/61, respirations 16, pulse is 85 and temperature is 97.6. LABORATORY DATA: Her GFR is only 38 and it has been staying around that range. [facility] [address] [place] [address] CONSULTATION Name: CASSANDRA CALERO Room #: 210-[facility] IN M.R.#: [id number] Admission: 10/22/18 Attend Phys: Madi Santiago Discharge: Date of : 56 Report #: [id number] IMPRESSION: The patient has a history of prior stroke with a left-sided weakness. I think her aggravation of symptom occurred because of hypotension caused by pain medication. However, a new stroke cannot be fully excluded. She did have symptoms yesterday before going to sleep and therefore, it does not look like she is an intervention candidate even if we find a stroke, but it will be desirable to evaluate that further. I will suggest keeping her blood pressure somewhat high. As I understand, she is already getting a fluid bolus. RECOMMENDATIONS: 1. MRI of the brain and MRA of the head and neck if the patient is agreeable. Presently, the patient declined MRI. I asked the nurses to talk to her and if she changes her mind, then I will get the MRI done. 2. If not, then try to avoid hypotension in this patient as much as possible and try to keep her blood pressure somewhat high. If she does not like the MRI, then I might get a carotid Doppler done tomorrow and we will just closely observe her. She needs to be evaluated and needs to be on secondary stroke prophylaxis, but that has to wait until her abdominal problem resolved. Thank you very much for this referral. <ELECTRONICALLY SIGNED> By: Lokesh Sousa MD 11/03/18 [id number] Lokesh Sousa MD /nt
[2018-11-03 10:00] VITALS: BP 103/61
[2018-11-03 12:00] VITALS: BP 90/60
--- NOTE | 2018-11-03 15:09 | NUR ---
Spouse at nursies station reporting wound care is coming and patient needs pain medication. He questioned if another Phys can order. Rn Idalia and casemgt spoke with patient and spouse in room. Patient reports with wound vac changes she needs IV diluded due to pain not fentyl which she is rec. At that time wound care came to room and noted they rec orders for IV diluded. Updated cont try for auth at [facility]port of [place]. Auth denied Dr Brown has information for peer to peer.
--- NOTE | 2018-11-03 15:40 | NUR ---
WOUND FOLLOW UP: PT. WAS SEEN TODAY BY DR. DUFF AND MYSELF. PT. WOUND VAC DRESSING WAS CHANGED TODAY. PT. WAS ANXIOUS ABOUT IT BUT, TOLERATED PROCEDURE WELL. WOUND MEASUREMENTS TODAY WERE: 8.1 X 2.5 X 3.0. WOUND BED IS BEEFY RED AND HEALTHY WITH GRANULATION TISSUE PRESENT. RECOMMENDATIONS: CONTINUE WITH CURRENT PLAN OF CARE. PT. AND STAFF NURSE WERE INSTRUCTED ON PLAN OF CARE.
--- NOTE | 2018-11-03 16:16 | NUR ---
spouse reports somewhere between room changes patient lost her abdominal binder. called 4w and security, no binder.
[2018-11-03 16:30] VITALS: BP 93/58
--- NOTE | 2018-11-03 18:18 | NUR ---
PT CARE ASSUMED APPROX 0700. PT ALERT AND ORIENTED X4. DENIES SOA. C/O PAIN TO ABD INTERMITTENTLY. FENT AND DILAUDID USED TO CONTROL PAIN. WOUND VAC CHANGED THIS SHIFT. PT WAS AGITATED REGARDED RECEIVING IV DILAUDID BUT MED WAS GIVEN AFTER ORDERED. SPOUSE AT BEDSIDE. BOTH DENY QUESTIONS OR CONCERNS REGARDING POC. LITHOPRESS OPERATOR VISITED BEDSIDE TO DISCUSS NEXT LEVEL OF CARE WITH PT. BP LOW AT TIMES. PT ASYMPTOMATIC. VS OTHERWISE STABLE. DIARRHEA PERSISTS. MEDS GIVEN TO TREAT. IV ABT REMOVED FROM POC. PO ABT STARTED. NO DISTRESS NOTED.
[2018-11-03 19:29] VITALS: BP 106/59
[2018-11-04] VITALS (8 sets, daily range): BP systolic 85–116; BP diastolic 48–71
--- NOTE | 2018-11-04 05:17 | NUR ---
ASSESSMENT DOCUMENTED. AOX4. WOUND VACUUM ON, DRESSING C/D/I. COMPLAINT OF CONSTANT PRESSURE ABDOMINAL PAIN MANGED WITH FENTANYL. COMPLAINT OF NAUSEA. PRN MED GIVEN. STILL WITH DIARRHEA NOTED, REDNESS ON THE RECTAL AREA NOTED, LIDOCAINE GEL APPLIED PER ORDERED. FF UP POC.
--- NOTE | 2018-11-04 11:41 | NUR ---
VSS-AFEBRILE. NO FURTHER REPORTS OF CHEST PAIN. CARDIOLOGY OK WITH DC, TO FOLLOW UP WITH DR GUILLEN OUTPATIENT ON 11/11/18. DISCUSSED ALL DC INSTRUTIONS, VERBALIZED UNDERSTANDING OF ALL CONTENT. LEFT UNIT IN WHEECHAIR WITH ALL PERSONAL BELONGINGS, AND TRANSPORTED BY VOLUNTEER.
--- NOTE | 2018-11-04 12:40 | NUR ---
WOUND FOLLOW UP: PT. WAS SEEN TODAY BY DR. DUFF AND MYSELF. PT. WOUND VAC DRESSING IS C/D/I AT THIS TIME. PT. IS RESTING WITHOUT COMPLAINTS. RECOMMENDATIONS: CONTINUE WITH CURRENT PLAN OF CARE. PT. AND STAFF NURSE WERE INSTRUCTED ON PLAN OF CARE.
--- NOTE | 2018-11-04 13:21 | NUR ---
FOLLOWING FOR DC PLANNING. CLINICAL INFO REVIEWED AND DISCUSSED WITH DR. DUFF. SKILLED REHAB REQUEST FROM [facility] WAS DENIED BY MCKINLEY AND DR. COULTER TO CALL PE[facility] TO PEER TODAY FOR POSSIBLE OVERTURN OF SKILLED REHAB DENIAL. PT HAS BEEN REQUIRING IV DILAUDID FOR WOUND VAC DRSG CHANGES. OFF IV ABX NOW. PER DR. DUFF, PT APPROPRIATE FOR HOME WITH HH AND OUTPT WOUND CARE FOLLOW UP. SKILLED REHAB LEVEL OF CARE CANNOT PROVIDE IV PUSH PAIN MED PRIOR TO WOUND VAC DRSG CHANGES. PT AND SPOUSE HAVE VERBALIZED CARE ISSUES AND CHRIS FROM PT EXPERIENCE HAS FOLLOWED UP WITH PT AND SPOUSE. DC PLAN UNCLEAR AT PRESENT, HOME WITH HH VS SKILLED IF CAN OVERTURN INSURANCE DENIAL AND MANAGE PAIN WITH PO MEDS ONLY.
--- NOTE | 2018-11-04 18:51 | NUR ---
VSS-AFEBRILE. LUNGS CLEAR-ROOM AIR. WOUND VAC REMAINED FUNCTIONING THROUGHOUT SHIFT. TOTAL BATH AND LINEN CHANGE. IV MEDICATION DISCONTINUED, TOLERATING ORAL PAIN MEDICATION WITH NO REPORTED N/V. FELL TO FLOOR WHILE GETTING OUT OF BED TO BEDSIDE COMMODE. SPOUSE WAS AT BEDSIDE AND WITNESSED FALL. PATIENT HAS BEEN OOB AD [place] THROUGH HOSPITAL STAY, AND STEADY ON FEET. DR COULTER NOTIFIED, NO NEW ORDERS. PATIENT HAS NO INJURIES OR REPORTED PAIN AFTER FALL. CONSUMED MOST OF MEALS TODAY WITHOUT DIFFICULTY. EDUCATED ON CALLING FOR ASSISTANCE IF NEEDING TO GET OUT OF BED, VERBALIZED UNDERSTANDING.
--- NOTE | 2018-11-04 19:44 | NUR ---
REMAINED ALERT AND ORIENTED X 4 POST FALL. PRIMARY RN ON BREAK, SPOUSE AT BEDSIDE, BUT HAD BACK TURNED TO PATIENT. CHARGE NURSE RESPONDED TO CALL LIGHT REPORTING THAT PATIENT HAD FALLEN.
--- NOTE | 2018-11-04 20:03 | NUR ---
FALL POST ASSESSMENT AND HUDDLE INFO COMPLETED BY AIR GRINDER THAT RESPONDED TO FALL, AND PRIMARY RN. PLACED IN CHART.
[2018-11-05 04:29] VITALS: BP 116/72
--- NOTE | 2018-11-05 05:32 | NUR ---
AOX4. STILL WITH CONSTANT PRESSURE PAIN ON THE ABDOMEN, MANAGED BY PRN PAIN MEDS. DIARRHEA STILL NOTED, REITERATED NO DAIRY DIET AND PRN MEDS GIVEN, APPLIED MOISTURE BARRIER ON THE PERIANAL AREA. MAINTAINED ON HIGH FALL PRECAUTION, STANDBY ASSIST DONE LO IN COMMODE. COMPLAINT OF N/V, PRN MEDS GIVEN. FF UP POC.
[2018-11-05 08:00] VITALS: BP 114/60
[2018-11-05 12:30] VITALS: BP 99/58
[2018-11-05 15:45] VITALS: BP 123/69
[2018-11-05 16:00] VITALS: BP 130/78
--- NOTE | 2018-11-05 16:07 | NUR ---
post acute care prev denied. Patient with benefit for home with HH. Prev discussion for arrangements with [facility]. [facility] agreeable for HH at [facility] Dr Sepulveda to speak with patient/family regarding preparing for home as they have been stating they will not go home at [place] they will "just stay here."
--- NOTE | 2018-11-05 16:51 | NUR ---
WOUND FOLLOW UP: PT. WAS SEEN TODAY BY DR. DUFF AND MYSELF. PT. WOUND VAC WAS CHANGED TODAY AND PT. TOLERATED WELL. RECOMMENDATIONS: CONTINUE WITH CURRENT PLAN OF CARE. PT. AND STAFF NURSE WERE INSTRUCTED ON PLAN OF CARE.
[2018-11-05 19:17] VITALS: BP 98/59
--- NOTE | 2018-11-05 19:52 | NUR ---
ASSUMED CARE OF PT AT APPROX 0700. ASSESSMENT CHARTED. WOUND CARE GIVEN BY WOUND NURSE. PT TO BE DC TOMORROW. WILL CONTINUE TO WORK TOWARDS POC. TREAT PAIN AND NAUSEA PRN. WILL UPDATE NEEDED.
[2018-11-06] VITALS (7 sets, daily range): BP systolic 82–88; BP diastolic 51–60
--- NOTE | 2018-11-06 06:52 | NUR ---
ASSUME CARE 1900. PT/VITALS STABLE. INTERMITTENT INCISIONAL PAIN. UP AD [place] TO [facility]. TOLERATING ACTIVITY WELL. ADEQUATE REST NOTED THROUGH THE NIGHT. PT IN SR. ASSESSMENT CHARTED, PROGRESSING WELL WITH P[OC. PLAN IS POSSIBLE DISCHARGE TODAY TO HOME WITH HOME HEALTH AND WOUND CARE. WILL CONTINUE TO MONITOR AND FOLLOW WITH POC
[2018-11-06 07:20] LABS: CALCIUM 9.2 mg/dL (8.5-10.1); CREATININE 1.5 mg/dL (0.6-1.0); MAGNESIUM 1.8 mg/dL (1.8-2.4); POTASSIUM 4.2 mmol/L (3.5-5.1)
--- NOTE | 2018-11-06 12:08 | NUR ---
Verbal consult rec'd from the attending. Pt is requesting [facility] transfer. Request initiated as a pt request to the [facility] transfer nurse [phone]. Dc paraplanner is faxing her face sheet and all requested clinical info the tx RN [phone]. The attending's cell number provided them as well for physician to physician discussion. Will await their response. Care team updated. [facility] standing by for HH orders at [facility]. .
[2018-11-06] MEDS ORDERED: BENTYL 10 MG CA10 MG PO (15:58)
[2018-11-06] MEDS ORDERED: COLACE100 MG PO (15:58)
[2018-11-06] MEDS ORDERED: POTASSIUM20 PO (15:58)
[2018-11-06] MEDS ORDERED: METRONIDAZOLE500 M4 PO (15:58)
[2018-11-06] MEDS ORDERED: ZOFRAN ODT4 MG PO (16:00)
[2018-11-06] MEDS ORDERED: ACIDOPHILUS1 EAC4 PO (16:08)
--- NOTE | 2018-11-06 18:21 | NUR ---
ASSUMED CARE OF PATIENT AT 0700. PT/VITALS STABLE. COMPLAINS OF GENERALIZED ABDOMINAL PAIN WHICH IS RELIEVED WITH OXYCODONE. ASSESSMENT CHARTED. PROGRESSING WELL WITH POC. NO CHEST PAIN NOTED. PATIENT WAS SOMEWHAT EMOTIONAL WITH THE THOUGHT OF GOING HOME TODAY AND DID NOT FEEL READY. I HAD MULTIPLE CONVERSATIONS WITH HER, REASSURING HER THAT SHE WILL HAVE HOME HEALTH AND WOUND CARE SET UP. HER WAS AT THE BEDSIDE FOR THE ENTIRETY OF THE DAY. SHE COMPLAINED OF NAUSEA AND THEN SENT HER TO [facility] FOR A HOT DOG AND SWEET TEA, WHICH SHE ATE. SHE REFUSED BOTH OT AND PT TODAY. WOUND VAC REP CAME TO SEE HER AND SET HER UP WITH A MOBILE UNIT AND SHE QUICKLY WAS READY FOR DISHCARGE. PATIENT TO BE SEEN TOMORROW BY [facility] CALLES. DISCHARGE PAPERWORK REVIEWED WITH THE PATIENT AND PRESCRIPTIONS GIVEN. PICC LINE REMOVED FROM LEFT UPPER ARM, TIP INTACT AND PRESSURE HELD. PATIENT TAKEN VIA WHEELCHAIR TO THE ER ENTRANCE AND DRIVEN HOME IN PERSON VEHICLE BY HER SIGNIFICANT OTHER.
== END 2018-11-06 17:14 | disposition home health service (06) | DRG 856 ==
LOC: ER 15:18 → EROBS 18:38 → 4W 18:38 → SICU 10-25 18:34 → ENTRNSPT 10-27 12:32 → EDTRNSPTSTS 10-27 12:43 → 4W 10-27 12:52 → 4E 11-01 21:14 → 2N 11-02 15:45
PROVIDERS: Emergency Medicine; Internal Medicine; Nurse Practitioner Acute Care; Specialist; ADMIT Hospitalist
DX: T81.43XA Infection following a procedure, organ and space surgical site, initial encounter (principal); A41.9 Sepsis, unspecified organism; E43 Unspecified severe protein-calorie malnutrition; L02.211 Cutaneous abscess of abdominal wall; I69.354 Hemiplegia and hemiparesis following cerebral infarction affecting left non-dominant side; K56.7 Ileus, unspecified; R18.8 Other ascites; T81.32XA Disruption of internal operation (surgical) wound, not elsewhere classified, initial encounter; E78.5 Hyperlipidemia, unspecified; D64.9 Anemia, unspecified; I10 Essential (primary) hypertension; K21.9 Gastro-esophageal reflux disease without esophagitis; B96.89 Other specified bacterial agents as the cause of diseases classified elsewhere; F41.9 Anxiety disorder, unspecified; K29.70 Gastritis, unspecified, without bleeding; I95.2 Hypotension due to drugs; E87.6 Hypokalemia; R19.7 Diarrhea, unspecified; Y83.8 Other surgical procedures as the cause of abnormal reaction of the patient, or of later complication, without mention of misadventure at the time of the procedure; Y92.89 Other specified places as the place of occurrence of the external cause; Z68.27 Body mass index [BMI] 27.0-27.9, adult; Z90.49 Acquired absence of other specified parts of digestive tract; Z90.710 Acquired absence of both cervix and uterus; Z87.891 Personal history of nicotine dependence; Z79.899 Other long term (current) drug therapy; Z88.2 Allergy status to sulfonamides; Z88.5 Allergy status to narcotic agent; Z88.8 Allergy status to other drugs, medicaments and biological substances; Z82.49 Family history of ischemic heart disease and other diseases of the circulatory system; Z80.8 Family history of malignant neoplasm of other organs or systems; Z23 Encounter for immunization
CPT/HCPCS: 10045; 10047; 10081; 10783; 10797; 15002; 27000